=== PATIENT | female | born 1960 | race Caucasian/White ===

== ENCOUNTER 2017-05-16 08:52 | Day surgery (SDC) | payer OTHER ==
[~2017-05-16] VITALS: Ht 152.4 cm; Wt 106.1 kg
--- NOTE | ~2017-05-16 | HP ---
PATIENT: FERNANDEZ EMMANUEL MEDICAL RECORD: [id number] ACCOUNT: [id number] LOCATION:D.BRIAN : 62 ADMISSION DATE: 05/16/17 HISTORY AND PHYSICAL EXAMINATION History and Physical Addendum There is a history and physical on the chart. I have reviewed her past history. We now have cardiac clearance to proceed with surgery. The risks, possible complications, and alternatives to the procedure were explained to the patient. She elects to proceed. TRANSINT:[id number] Voice Confirmation ID: [id number] DOCUMENT ID: [id number] ALEJANDRA HARTMAN MD CC: [id number] DICTATION DATE: 05/16/17 1309 ELECTRIC RAZOR MECHANIC: 05/16/17 1402 [address] [place] [id number] [place] [id number]
--- NOTE | ~2017-05-16 | OP ---
PATIENT NAME: FERNANDEZ EMMANUEL MEDICAL RECORD: [id number] :62 LOCATION:D.[facility] ADMISSION DATE: SURGEON: ALEJANDRA HARTMAN MD DATE OF OPERATION: 05/16/2017 PREOPERATIVE DIAGNOSIS: History of T1N0M0 anal squamous cell carcinoma. POSTOPERATIVE DIAGNOSIS: History of T1N0M0 anal squamous cell carcinoma with no grossly-appearing recurrence, path pending. PROCEDURES: 1. Anal evaluation under anesthesia. 2. Incisional biopsies of the anus. 3. Anal brushings for cytology. SURGEON: Alejandra Hartman MD. JEWELRY ENGRAVER: None. BLOOD LOSS: Minimal. ANESTHESIA: General. COMPLICATIONS: None. The risks, possible complications and alternatives to the procedure were explained to the patient. She elects to proceed. OPERATIVE COURSE: The patient was conveyed to the operating room electively on 05/16/2017. General anesthesia was induced by the anesthesia staff. The patient was placed in the lithotomy position. The buttocks were taped laterally. The anus and perianal areas were sterilely prepped and draped. I then dilated the anus laterally to 2 fingers. U-shaped anal retractors were placed. Utilizing mediastinoscopy biopsy forceps, I performed 360-degree biopsies of the anal mucosa. This was after brushing the anus with a cytology brush. The brush was sent to pathology. The anal biopsies were sent to pathology. Utilizing the argon plasma shovel log loader operator with the right colon setting in the forced mode, hemostasis was achieved. There was one area that had to be closed with a single horizontal mattress 3-0 Vicryl suture. Gelfoam was applied within the anus and lower rectum. A combination of sterile preparation and Marcaine was used to infiltrate the perianal tissues. A topical anesthetic cream was applied to the external hemorrhoids. The patient was then extubated and conveyed to the post-anesthesia care unit where she was in stable condition. She will be dismissed home on Valium, Glendo as well as Colace. I will see her in the office in 2-3 weeks. TRANSINT:[id number] Voice Confirmation ID: [id number] DOCUMENT ID: [id number] OPERATIVE REPORT [id number] FERNANDEZ EMMANUEL ALEJANDRA HARTMAN MD CC: JOSHUA FERGUSON MD, BOUCHRA MERRITT TAUTH, JEFFREY MD and [facility], [id number] DICTATION DATE: 05/16/17 1428 TAILER IN: 05/16/172199 [facility] 05/16/17 [facility] [address] [place] [id number]
[~2017-05-16 08:52] MED LIST: ATIVAN0.5 MG PO; BAYER CHEWABLE81 MG PO; BENTYL 20 MG TA20 MG PO; CELEXA20 MG PO; CHERATUSSIN AC473 ML PO; COZAAR100 MG PO; HYDROCODON-ACE1 EAC9 PO; IMODIUM2 MG PO; NEXIUM40 MG PO; OMNICEF300 MG PO; PLAVIX75 MG PO; ZEBETA10 MG PO; ZIAC 10-6.25 MG1 TAB PO; ZOFRAN8 MG PO
[2017-05-16 09:38] LABS: BASOPHILS 0.1 % (0-2); EOSINOPHILS 1.7 % (0-7); HEMATOCRIT 36.3 % (36.0-48.0); HEMOGLOBIN 11.8 g/dL (12-16); IMMATURE GRANULOCYTES 0.9 % (0-5); LYMPHOCYTES 8.9 % (15-50); MCHC 32.5 g/dL (31.0-37.0); MCV 92.4 fL (80.0-100.0); MEAN PLATELET VOLUME 9.4 fL (7.4-10.4); MONOCYTES 11.5 % (2-11); NEUTROPHILS 76.9 % (40-80); RBC 3.93 10x6/uL (4.00-5.40); RDW 14.3 % (11.5-14.5); WBC 6.9 10x3/uL (4.8-10.8)
[2017-05-16 09:40] LABS: PLATELET COUNT 299 10x3/uL (130-400)
[2017-05-16 09:53] LABS: ANION GAP 17.6 mmol/L (8-16); CALCIUM 9.7 mg/dL (8.5-10.1); CARBON DIOXIDE 22.2 mmol/L (21.0-32.0); CREATININE - SERUM 1.6 mg/dL (0.6-1.3); POTASSIUM - SERUM 3.8 mmol/L (3.5-5.1)
[2017-05-16 09:57] LABS: APTT 28.6 SECONDS (22.8-39.4); PROTIME 13.1 SECONDS (11.6-15.0)
[2017-05-16 10:13] VITALS: BP 110/56; Ht 152.4 cm; Wt 106.1 kg
--- NOTE | 2017-05-16 14:55 | NUR ---
PATIENT C/O HEAVINESS IN CHEST AREA EKG ORDERED AND PERFORMED IN RR OK TO TRANSPORT TO OUTPATIENT PER DR ROMERO
--- NOTE | 2017-05-16 15:54 | NUR ---
1515 BACK FROM EXAM UNDER ANESTHESIA AND BIOPSIES. HAS MESH PANTIES ON AND DRESSING NO ACTIVE BLEEDING. RESP NONLABORED SAT 91 ON 2 L N/C. DENIES CHEST PAIN.
--- NOTE | 2017-05-16 16:18 | NUR ---
1545 UP AND VOIDED V/S STABLE. TOLERATED FULL LIQUIDS. PAD CHANGED SMALL AMT BLEEDING ON PAD.
--- NOTE | 2017-05-16 16:19 | NUR ---
1616 V/S STABLE. DISCHARGE INSTRUCTIONS GIVEN IV DCD CATHETER INTACT.
--- NOTE | 2017-05-16 16:33 | NUR ---
1630 DISCHARGED TO HOME VIA W/C WITH FAMILY.
== END 2017-05-16 16:30 | disposition home or self-care (01) ==
LOC: D.OPS 08:52 → D.PAN 11:00 → D.OPS 11:30 → D.PAN 13:30 → D.OPS 13:35 → D.PAN 13:35 → D.OPS 15:45
PROVIDERS: Anesthesiology
DX: Z85.048 Personal history of other malignant neoplasm of rectum, rectosigmoid junction, and anus (principal); Z01.812 Encounter for preprocedural laboratory examination

== ENCOUNTER 2018-04-22 07:52 | Outpatient (CLI) | payer BC ==
[~2018-04-22] VITALS: Ht 152.4 cm; Wt 109.1 kg
--- NOTE | ~2018-04-22 | HEMODYNAMI ---
PATIENT:FERNANDEZ EMMANUEL MEDICAL RECORD: [id number] : 62 LOCATION:D.CAT ADMISSION DATE: 04/22/18 Generatedon:04/22/201810:01 Patient name: FERNANDEZ EMMANUEL Patient #: [id number] SSN: D OB: 1960 Date of study: 04/22/2018 Page: Of Hemodynamic Procedure Report Patient Data Patient Demographics Procedure consent was obtained First Name: FERNANDEZ Gender: Female Last Name: CHOLO : 1960 Middle Initial: A Age: 57 year(s) Patient #: [id number] Race: Additional ID: [id number] Contact details [address]: [address] [place] [address] rd State: [place] City: [place] Zip code: [address] Past Medical History History of disease Date Diagnosis Comments Peripheral vascular disease Allergies Allergen Reaction Date Comments Reported Morphine 11/01/2015 Morphine 11/07/2016 Morphine 11/08/2016 Morphine 04/22/2018 Admission Admission Data Admission Date: 04/22/2018 Admission Time: 7:52 Height (in.): 5 BSA: 0.33 (m2) Height (cm.): 12.7 BMI: 6777.59 (kg/m2) Weight (lbs.): 241 Weight (kg.): 109.32 Lab Results Lab Result Date: 04/22/2018 Lab Result Time: 0:00 Biochemistry Name Units Result Min Max BUN mg/dl 38 --(----)-* 7 18 Creatinine mg/dl 1.4 --(----)*- 0.6 1.3 CBC Name Units Result Min Max Hemoglobin g/dl 12 *-(----)-- 13.5 17.5 Procedure Procedure Types Cath Procedure Diagnostic Procedure [facility] w/Coronaries FFR/IVUS Intra-Coronary IVUS Initial Sedation Charges Moderate Sedation up to 15 minutes PCI Procedure Coronary Stent Coronary Stent Initial Procedure Description Procedure Date Procedure Date: 04/22/2018 Procedure Start Time: 9:43 Procedure End Time: 10:00 Procedure Staff Name Function Chan Castro MD Performing Physician Brook Gamboa RT Monitor Jahaira Platt RT Scrub Jan Long RN Nurse Procedure Data Cath Procedure Fluoroscopy Diagnostic fluoroscopy Total fluoroscopy Time: 3.6 time: 3.6 min min Diagnostic fluoroscopy Total fluoroscopy dose: 727 dose: 727 mGy mGy Contrast Material Contrast Material Type Amount (ml) Isovue 300 80 Entry Location Entry Primary Successful Side Size Upsize Upsize Entry Closure Rivera ccessful Closure Location (Fr) 1 (Fr) 2 (Fr) Remarks Device Remarks Radial Right 6 Fr Mechanical artery Short Compression Estimated blood loss: 10 ml Diagnostic catheters Device Type Used For End Catheter Placement DIAGNOSTIC [place] 110cm 5 Procedure Fr catheter ([id number]) Procedure Complications No complications Procedure Medications Medication Administration Route Dosage 0.9% NaCl I.V. 100 ml/hr Oxygen etCO2 Nasal cannula 2 l/min Heparin Flush Bag added to field 2 bags (1000units/500ml NS) Lidocaine 2% added to field 20 Radial Cocktail added to field 1 syringe (Verapomil 2mg/Nitro 400mcg/Heparin 1500units) Pepcid I.V. 20 mg Versed I.V. 1 mg Fentanyl I.V. 50 mcg Versed I.V. 1 mg Fentanyl I.V. 50 mcg Radial Cocktail I.A. 1 syringe (Verapomil 2mg/Nitro 400mcg/Heparin 1500units) Heparin Bolus I.V. 4000 units Hemodynamics Rest BSA: 0.33 (m2) O2 Consumption: Estimated: 44.88 (ml/min) O2 Consumption indexed: Estimated:136 (ml/min/m) Pre Cath Intra NCS Post Cath Vital Signs Time Heart Resp SPO2 etCO2 NIBP (mmHg) Rhythm Pain Sedation Rate (ipm) (%) (mmHg) Status Level (bpm) 9:17:30 62 20 98 0 157/78(120) NSR 0 (11) 10(A) , No pain 9:22:25 59 17 100 41 128/68(104) NSR 0 (11) 10(A) , No pain 9:28:11 58 15 98 41.7 102/39(84) NSR 0 (11) 10(A) , No pain 9:32:52 57 23 96 43.2 107/56(76) NSR 0 (11) 10(A) , No pain 9:37:32 57 14 97 41.7 96/49(81) NSR 0 (11) 10(A) , No pain 9:42:49 64 16 100 44 141/69(102) NSR 0 (11) 9(A) , No pain 9:47:40 66 14 93 46.9 120/58(83) NSR 0 (11) 9(A) , No pain 9:52:23 65 15 94 46.9 110/59(82) NSR 0 (11) 10(A) , No pain 9:57:22 64 14 99 46.2 Measuring NSR 0 (11) 10(A) , No pain 9:57:51 64 27 97 46.2 124/60(78) NSR 0 (11) 10(A) , No pain Medications Time Medication Route Dose Verified Delivered Reason Note s Effectiveness by by 9:27:30 0.9% NaCl I.V. 100 Jan Jan Per physician ml/hr Mercedes Long RN RN 9:27:40 Oxygen etCO2 2 l/min Jan Jan Per physician Nasal Mercedes Long cannula MICHELLE RN 9:27:57 Heparin Flush added 2 bags Jan Jan used for Bag to Mercedes Long procedure (1000units/500ml field MARTINEZ RN NS) 9:28:07 Lidocaine 2% added 20ml Jan Jan for local to vial Lorsujatha Long anesthetic field MARTINEZ RN 9:28:23 Radial Cocktail added 1 Jan Jan used for (Verapomil to syringe Vickieigan Mercedes procedure 2mg/Nitro field MARTINEZ RN 400mcg/Heparin 1500units) 9:28:39 Pepcid I.V. 20 mg Jan Jan Per physician Mercedes Long RN RN 9:39:28 Versed I.V. 1 mg Jan Jan for sedation Mercedes Long RN RN 9:39:37 Fentanyl I.V. 50 mcg Jan Jan for sedation Mercedes Long RN RN 9:41:45 Versed I.V. 1 mg Jan Jan for sedation Mercedes Long RN RN 9:41:52 Fentanyl I.V. 50 mcg Jan Jan for sedation Mercedes Long RN RN 9:44:10 Radial Cocktail I.A. 1 Jan Chan for (Verapomil syringe Lorigan Tauth MD vasodilation 2mg/Nitro RN 400mcg/Heparin 1500units) 9:49:28 Heparin Bolus I.V. 4000 Jan Montoya for units Mercedes Long anticoagulation RN manual control auger press operator Log Time Note 8:55:12 Time tracking: Regular hours (M-F 7:00 - 5:00) 8:55:15 Plan of Care:Hemodynamics will remain stable., Cardiac rhythm will remain stable., Comfort level will be maintained., Respiratory function will remain adequate., Patient/ family verbilizes understanding of procedure., Procedure tolerated without complication., Recovers from procedure without complications.. 8:55:17 Signed procedure consent form obtained from patient. 8:57:57 Patient allergic to Morphine 8:58:29 Lab Result : BUN 38 mg/dl 8:58:29 Lab Result : Creatinine 1.4 mg/dl 8:58:29 Lab Result : Hemoglobin 12 g/dl 8:58:46 Patient Height : 5 inches 8:58:50 Patient Weight : 241 lbs 9:00:06 H&P Date Dictated: 04/01/2018 Within 30 days and on chart., H&P Addendum completed by physician on day of procedure. (MUST COMPLETE FOR ALL OUTPATIENTS). 9:03:00 Brook Gamboa RT(R) sent for patient. Start room use. 9:09:37 Patient received from Pre/Post Procedure Room to CCL 1 Alert and oriented. Tansferred to table in Supine position. 9:09:39 Warm blankets applied, and nisha hugger turned on for patient comfort. 9:09:39 Correct patient and procedure confirmed by team. 9:09:40 ECG and BP/O2 sat monitors applied to patient. 9:16:29 Vital chart was started 9:19:26 Rhythm: sinus rhythm 9:19:27 Full Disclosure recording started 9:19:28 Pre-procedure instructions explained to patient. 9:19:29 Pre-op teaching completed and patient verbalized understanding. 9:19:30 Family in patients room. 9:19:31 Patient NPO since Midnight. 9:19:33 Is the patient allergic to Iodine/contrast media? No. 9:23:44 Is patient on blood thinner?Yes 9:24:24 pre loaded plavix 9:24:29 Patient diabetic? No. 9:25:04 Patient not . Patient has had hysterectomy. 9:25:06 Previous problem with sedation/anesthesia? No ? 9:25:08 Snore? Yes 9:25:09 Sleep apnea? Yes 9:25:10 Deviated septum? No 9:25:11 Opens mouth fully? Yes 9:25:12 Sticks out tongue? Yes 9:25:14 Airway obstruction? No ? 9:25:18 Dentures? Yes OUT 9:25:21 Modified Billy's test Ulnar < 7 seconds 9:25:23 Patient pain scale 0/10 ?. 9:25:27 IV patent on arrival in left forearm with 0.9% NaCl at [facility]. 9:25:31 Lab results completed and on chart. 9:25:35 Right Radial & Right Groin area was prepped with chlora-prep and draped in sterile fashion 9:25:36 Alarms reviewed by R. N. 9:25:37 Sharps counted by scrub and verified by R.N. 9:25:41 Use device set Radial Dx or PCI 9:25:47 ACIST Syringe (13293) opened to sterile field. 9:25:50 Bag Decanter (2002S) opened to sterile field. 9:25:51 ACIST Manifold (41487) opened to sterile field. 9:25:52 ACIST Hand Control (62620) opened to sterile field. 9:25:53 Tegaderm 4 x 4 (1626W) opened to sterile field. 9:25:57 Medline Cath Pack ([id number]) opened to sterile field. 9:25:58 DIAGNOSTIC WIRE .035 260cm J wire (555913) opened to sterile field. 9:25:58 MBrace Wrist Support ([id number]) opened to sterile field. 9:26:01 SHEATH 6Fr Prelude Radial ([id number]) opened to sterile field. 9:27:30 0.9% NaCl 100 ml/hr I.V. was administered by Jan Long RN; Per physician; 9:27:40 Oxygen 2 l/min etCO2 Nasal cannula was administered by Jan Long RN; Per physician; 9:27:57 Heparin Flush Bag (1000units/500ml NS) 2 bags added to field was administered by Jan Long RN; used for procedure; 9:28:07 Lidocaine 2% 20ml vial added to field was administered by Jan Long RN; for local anesthetic; 9:28:23 Radial Cocktail (Verapomil 2mg/Nitro 400mcg/Heparin 1500units) 1 syringe added to field was administered by Jan Long RN; used for procedure; 9:28:39 Pepcid 20 mg I.V. was administered by Jan Long RN; Per physician; 9:38:29 --------ALL STOP TIME OUT------ 9:38:30 Final Timeout: patient, procedure, and site verified with staff and physician. All members of the team are in agreement. 9:38:32 Right Radial & Right Groin site verified by team. 9:38:34 Physical assessment completed. ASA score P 2 - A patient with mild systemic disease as per Chan Castro MD. 9:38:37 Sedation plan: IV Moderate Sedation Medication:Versed, Fentanyl 9:38:40 Zero performed for pressure channel P1 9:39:28 Versed 1 mg I.V. was administered by Jan Long RN; for sedation; :39:37 Fentanyl 50 mcg I.V. was administered by Jan Long RN; for sedation; 9:41:45 Versed 1 mg I.V. was administered by Jan Long RN; for sedation; 9:41:52 Fentanyl 50 mcg I.V. was administered by Jan Long RN; for sedation; 9:42:03 Procedure started. 9:43:23 Local anesthetic to right radial artery with Lidocaine 2% by Chan Castro MD.INITIAL ACCESS ONLY 9:43:37 A 6 Fr Short sheath was inserted into the Right Radial artery 9:44:10 Radial Cocktail (Verapomil 2mg/Nitro 400mcg/Heparin 1500units) 1 syringe I.A. was administered by Chan Castro MD; for vasodilation; 9:44:57 A DIAGNOSTIC [place] 110cm 5 Fr catheter (898368) was advanced over the wire and used for Procedure. 9:45:20 Injector settings: Ml/sec: 7, Volume: 15, 9:45:22 LV gram done using KAUFFMAN 9:45:49 EF : 60 % 9:46:08 RCA angiography performed. 9:47:28 Catheter exchanged over wire. 9:47:35 INFLATOR Merit BasixCompak (KD8209) opened to sterile field. 9:47:38 CHOICE PT Extra Support 182cm wire ([id number]) opened to sterile field. 9:47:44 GUIDE 6FR XBLAD 3.5 catheter ([id number]) opened to sterile field. 9:48:04 6 Fr XBLAD 3.5 guide catheter was inserted over the wire 9:49:12 LCA angiography performed. 9:49:28 Heparin Bolus 4000 units I.V. was administered by Jan Long RN; for anticoagulation; 9:49:59 Indio Inupiat Eagleye IVUS Catheter (49251X) opened to sterile field. 9:50:27 CHOICE ES 182 wire advanced. 9:52:04 IVUS catheter advanced over wire. 9:52:06 IVUS pass to LAD lesion performed. 9:52:15 IVUS catheter removed over wire. 9:54:02 Place stent Inflation Number: 1 A INTEGRITY RX 3.0 x 15 stent ([id number]) was prepped and advanced across the Mid LAD. The stent was deployed at 13 FREDERICK for 0:10 (min:sec). 9:54:21 Stent catheter was removed intact over wire. 9:54:22 Wire removed. 9:54:23 Guide catheter removed. 9:54:33 Procedure ended.(Physican Out) 9:54:53 Sheath removed intact; hemostasis achieved with Mechanical Compression to the Right Radial artery. 9:55:01 Fluoroscopy time 03.60 minutes. 9:55:10 Fluoroscopy dose: 727 mGy 9:55:10 Flurop Dose total: 727 9:55:15 Contrast amount:Isovue 300 80ml. 9:55:16 Sharps counted by scrub and verified by R.N. 9:55:25 TR BAND Standard ([id number]) opened to sterile field. 9:57:36 TR band inflated with 11cc of air. 9:57:41 Post-procedure physical assessment completed. ASA score P 2 - A patient with mild systemic disease as per Chan Castro MD. 9:57:48 Post procedure rhythm: sinus rhythm 9:57:51 Estimated blood loss: 10 ml 9:57:53 Post procedure instruction explained to patient.Patient verbalizes understanding. 9:57:53 Patient needs reinforcement of post procedure teaching. 9:58:51 Procedure type changed to Cath procedure, Diagnostic procedure, LHC, LHC w/Coronaries, FFR/IVUS, Intra-Coronary IVUS Initial, Sedation Charges, Moderate Sedation up to 15 minutes, PCI procedure, Coronary Stent, Coronary Stent Initial 10:00:14 Procedure and supply charges have been captured, reviewed, submitted and are correct. 10:00:19 Procedure Complication : No complications 10:00:21 Vital chart was stopped 10:00:22 See physician's report for complete and final results. 10:00:24 Report given to Pre/Post Procedure Room. 10:00:27 Patient transfered to Pre/Post Procedure Room with Bed. 10:00:32 Procedure ended. 10:00:32 Full Disclosure recording stopped 10:00:35 End room use (Document Last) Intervention Summary Intervention Notes Time ActionType Lesion and Equipment Action# Pressure Duration Attributes Used 9:54:02 Place stent Mid LAD INTEGRITY RX 1 13 00:10 3.0 x 15 stent ([id number]) Device Usage Item Name Manufacture Quantity Catalog Number Hospital Part Current M inimal Lot# / Charge Number Stock Stock Serial# Code ACIST Syringe Acist 1 99724 313573 262118 667388 2 0 (79221) Medical Systems Inc Bag Decanter Microtek 1 2002S 852393 53073 914311 5 (2002S) Medical Inc. ACIST Manifold Acist 1 41200 320320 519060 607161 5 (82076) Medical Systems Inc ACIST Hand Acist 1 40026 610927 714987 463192 5 Control (38587) Medical Systems Inc Tegaderm 4 x 4 3M 1 1626W 408503 632419 275238 5 (1626W) Medline Cath Cardinal 1 [id number] 989409 39902 271171 5 [facility] ([id number]) DIAGNOSTIC WIRE St Roney 1 538570 841104 783330 222391 3 0 .035 260cm J wire (155989) MBrace Wrist Advanced 1 140-0250-00 604544 92861 001496 5 Support Vascular (961400097) Dynamics SHEATH 6Fr Merit 1 [id number] 963758 128168 999389 5 Prelude Radial Medical ([id number]) DIAGNOSTIC Terumo 1 40-2301 824101 344534 727651 5 [place] 110cm 5 Fr catheter (481726) INFLATOR Merit Merit 1 [id number] 695407 668221 309759 1 5 [facility] (AQ5325) CHOICE PT Extra Heyburn 1 [id number] 230979 765787 752402 5 Support 182cm Scientific wire ([id number]) GUIDE 6FR XBLAD Cardinal 1 [id number] 416859 962023 726986 1 0 3.5 catheter Health (03040861) Indio Indio 1 [id number] 310944 101467 801550 8 Inupiat Eagleye IVUS Catheter (37503F) INTEGRITY RX Medtronic 1 [id number] 109547 778396 223873 5 3.0 x 15 stent ([id number]) TR BAND Terumo 1 [id number] 419881 997323 892862 4 0 Standard ([id number]) Signature Audit [place] Stage Time Signature Unsigned Intra-Procedure 04/22/2018 Brook Gamboa 10:01:07 AM RT(R) Signatures Monitor : Brook Gamboa Signature : RT Date : Time : [id number] [place] [address]
--- NOTE | ~2018-04-22 | OP ---
PATIENT NAME: FERNANDEZ EMMANUEL MEDICAL RECORD: [id number] :62 LOCATION:D.CAT ADMISSION DATE: SURGEON: JULES ARREGUIN MD DATE OF OPERATION: 04/22/2018 PROCEDURES: 1. PTCA stent LAD. 2. Intravascular ultrasound. 3. Left heart catheterization. 4. Selective coronary angiography. 5. Left ventriculogram. INDICATION: Angina, coronary artery disease, abnormal nuclear stress test, anterior ischemia. PROCEDURE IN DETAIL: After informed consent was obtained and after detailed explanation of risks, benefits as well as alternative therapies, the patient elected to proceed with angiogram and angioplasty. The right radial area was prepped and draped in normal sterile fashion. Right radial artery was cannulated via modified Seldinger technique with placement of 6-Croatian sheath. All catheters exchanged through this sheath. FINDINGS: The left ventriculogram was performed in a standard 30-degree KAUFFMAN view, reveals good cardiac wall motion throughout all segments. Overall ejection fraction estimated 60%. SELECTIVE CORONARY ANGIOGRAPHY: 1. Left main is with no significant angiographic disease. 2. Left anterior descending has previously placed stent that is widely patent. After the previously placed stent, there is a shrinkage of the whole vessel and 60% stenosis at that point. However, when looking at the outer diameter of the vessel before and after this area, this is more than 60% stenosis due to the shrinkage of the whole vessel at this point. 3. Left circumflex has moderate irregularities, but no flow-limiting stenosis. 4. The right coronary has previously placed stents, these are widely patent with no significant restenosis throughout. PTCA STENT OF THE LAD: The stent used was a 3.0 x 15 mm Integrity. Result was 0% residual stenosis. OVERALL IMPRESSION: Successful percutaneous transluminal coronary angioplasty stent of the left anterior descending going from greater than 70% initial stenosis in the mid vessel correlating with the perfusion defect on nuclear stress testing to 0% residual stenosis. TRANSINT:[id number] Voice Confirmation ID: [id number] DOCUMENT ID: [id number] OPERATIVE REPORT [id number] CHOLOFERNANDEZ Fam JULES ARREGUIN MD at 1711 CC: [id number] DICTATION DATE: 04/22/18 0959 SOLUTION LEAD: 04/22/18 1205 DEP CLI 04/22/18 [facility] [address] [place] [address]
[2018-04-22] MEDS ORDERED: CRESTOR5 MG PO (08:33)
[2018-04-22 08:38] LABS: BASOPHILS 0.2 % (0-2); EOSINOPHILS 2.3 % (0-7); HEMATOCRIT 36.2 % (36.0-48.0); IMMATURE GRANULOCYTES 0.8 % (0-5); MCH 30.1 pg (26.0-34.0); MCHC 33.1 g/dL (31.0-37.0); MCV 90.7 fL (80.0-100.0); NEUTROPHILS 78.7 % (40-80); PLATELET COUNT 260 10x3/uL (130-400); RBC 3.99 10x6/uL (4.00-5.40); RDW 13.9 % (11.5-14.5); WBC 6.6 10x3/uL (4.8-10.8)
[2018-04-22 08:41] VITALS: BP 126/47; Ht 152.4 cm; Wt 109.1 kg
[2018-04-22 08:48] LABS: CALCIUM 9.2 mg/dL (8.5-10.1); CARBON DIOXIDE 22.2 mmol/L (21.0-32.0); CREATININE - SERUM 1.4 mg/dL (0.6-1.3); POTASSIUM - SERUM 4.2 mmol/L (3.5-5.1)
== END 2018-04-22 14:00 | disposition home or self-care (01) ==
LOC: D.CATH 07:52
PROVIDERS: Internal Medicine Interventional Cardiology
DX: I25.119 Atherosclerotic heart disease of native coronary artery with unspecified angina pectoris (principal); Z01.812 Encounter for preprocedural laboratory examination

== ENCOUNTER 2018-05-22 09:15 | Outpatient (CLI) | payer BC ==
[~2018-05-22] VITALS: Ht 152.4 cm; Wt 110.0 kg
--- NOTE | ~2018-05-22 | HEMODYNAMI ---
PATIENT:FERNANDEZ EMMANUEL MEDICAL RECORD: [id number] : 62 LOCATION:DLeonaCAT ADMISSION DATE: 05/22/18 Generatedon:05/22/201815:06 Patient name: FERNANDEZ EMMANUEL Patient #: [id number] SSN: D OB: 1960 Date of study: 05/22/2018 Page: Of Hemodynamic Procedure Report Patient Data Patient Demographics Procedure consent was obtained First Name: FERNANDEZ Gender: Female Last Name: CHOLO : 1960 [facility] Initial: A Age: 57 year(s) Patient #: [id number] Race: Additional ID: [id number] Contact details [address]: [address] [place] [address] rd State: [place] City: [place] Zip code: [address] Past Medical History History of disease Date Diagnosis Comments Peripheral vascular disease Allergies Allergen Reaction Date Comments Reported Morphine 11/01/2015 Morphine 11/07/2016 Morphine 11/08/2016 Morphine 04/22/2018 Other allergy 05/22/2018 Morphine Admission Admission Data Admission Date: 05/22/2018 Admission Time: 9:15 Admit Source: Other Lab Results Lab Result Date: 05/22/2018 Lab Result Time: 10:40 Biochemistry Name Units Result Min Max BUN mg/dl 25 --(----)-* 7 18 Creatinine mg/dl 1.3 --(---*)-- 0.6 1.3 CBC Name Units Result Min Max Hematocrit % 35.3 *-(----)-- 42 54 Hemoglobin g/dl 11.5 *-(----)-- 13.5 17.5 Procedure Procedure Types Cath Procedure Peripheral Cath Diagnostic Procedure Cath Peripheral Nctmb-Vwqbzte-Zuh-Off Peripheral vascular Intervention Stent Stent Iliac w/plasty Initial Procedure Description Procedure Date Procedure Date: 05/22/2018 Procedure Start Time: 14:42 Procedure End Time: 15:05 Procedure Staff Name Function Chan Castro MD Performing Physician Fahad Webb RN Nurse Brook Gamboa RT Scrub Magdaleno Calderón RT Monitor Procedure Data Cath Procedure Fluoroscopy Diagnostic fluoroscopy Total fluoroscopy Time: 2.3 time: 2.3 min min Diagnostic fluoroscopy Total fluoroscopy dose: 352 dose: 352 mGy mGy Contrast Material Contrast Material Type Amount (ml) Isovue 370 70 Entry Location Entry Primary Successful Side Size Upsize 1 Upsize Entry Closure Rivera ccessful Closure Location (Fr) (Fr) 2 (Fr) Remarks Device Remarks Femoral Right 5 Fr Exoseal artery Femoral Left 6 Fr 6 Fr 6 Fr Exoseal artery Short Mid-Length Short Estimated blood loss: 10 ml Diagnostic catheters Device Type Used For End Catheter Placement DIAGNOSTIC UF 5Fr Procedure catheter ([id number]) Procedure Complications No complications Procedure Medications Medication Administration Route Dosage Oxygen NC 2 l/min Lidocaine 2% added to field 20 Heparin Flush Bag added to field 2 bags (1000units/500ml NS) 0.9% NaCl I.V. 100 ml/hr Versed I.V. 1 mg Fentanyl I.V. 50 mcg Versed I.V. 1 mg Versed I.V. 1 mg Fentanyl I.V. 50 mcg Heparin Bolus I.V. 4000 units Versed I.V. 1 mg Hemodynamics Rest HGB: 11.5 (g/dl) Heart Rate: 58 (bpm) Snapshots Pre Cath Intra NCS Post Cath Vital Signs Time Heart Resp SPO2 etCO2 NIBP (mmHg) Rhythm Pain Sedation Rate (ipm) (%) (mmHg) Status Level (bpm) 14:25:23 56 15 100 33.6 173/99(154) NSR 0 (11) 10(A) , No pain 14:29:41 60 14 98 42.6 121/81(102) NSR 0 (11) 10(A) , No pain 14:33:43 59 15 98 41.1 128/79(113) NSR 0 (11) 10(A) , No pain 14:37:46 57 13 98 41.1 122/81(116) NSR 0 (11) 10(A) , No pain 14:41:48 61 14 97 35.8 126/79(96) NSR 0 (11) 10(A) , No pain 14:45:54 57 14 97 41.9 120/71(101) NSR 0 (11) 9(A) , No pain 14:49:55 64 15 97 43.3 131/79(95) NSR 0 (11) 9(A) , No pain 14:54:01 61 14 98 43.3 129/72(91) NSR 0 (11) 10(A) , No pain 14:58:03 64 16 98 41.9 140/82(114) NSR 0 (11) 10(A) , No pain 15:02:11 60 14 98 42.6 139/74(115) NSR 0 (11) 10(A) , No pain Medications Time Medication Route Dose Verified Delivered Reason Notes Effectiveness by by 14:23:50 Oxygen NC 2 Chan Buffie used for l/min Gloria Webb RN procedure 14:23:57 Lidocaine 2% added 20ml Chan Buffie used for to vial Gloria Webb RN procedure field 14:24:04 Heparin Flush added 2 Chan Buffie used for Bag to bags Gloria Webb RN procedure (1000units/500ml field NS) 14:24:12 0.9% NaCl I.V. 100 Chan Buffie Per physician ml/hr Gloria Webb RN 14:40:18 Versed I.V. 1 mg Chan Buffie for sedation Gloria Webb RN 14:40:24 Fentanyl I.V. 50 Chan Buffie for sedation mcg Gloria Webb RN 14:44:01 Fentanyl I.V. 50 Chan Buffie for sedation mcg Gloria Webb RN 14:44:55 Versed I.V. 1 mg Chan Buffie for sedation Gloria Webb RN 14:46:56 Versed I.V. 1 mg Chan Buffie for sedation Gloria Webb RN 14:50:14 Heparin Bolus I.V. 4000 Chan Buffie for verifi ed units Gloria Webb RN anticoagulation with dr castro 14:52:34 Versed I.V. 1 mg Chan Buffie for sedation Gloria Webb RN Procedure Log Time Note 13:54:56 Informed consent obtained and on chart 13:54:58 Admit Source: Other 13:55:09 Diagnostic Cath status Elective 13:55:10 Time tracking: Regular hours (M-F 7:00 - 5:00) 13:55:13 Plan of Care:Hemodynamics will remain stable., Cardiac rhythm will remain stable., Comfort level will be maintained., Respiratory function will remain adequate., Patient/ family verbilizes understanding of procedure., Procedure tolerated without complication., Recovers from procedure without complications.. 14:05:06 Fahad Webb RN sent for patient. Start room use. 14:12:41 Patient received from Pre/Post Procedure Room to CCL 2 Alert and oriented. Tansferred to table in Supine position. 14:12:42 Warm blankets applied, and nisha hugger turned on for patient comfort. 14:12:43 Correct patient and procedure confirmed by team. 14:12:43 ECG and BP/O2 sat monitors applied to patient. 14:12:45 Pre-procedure instructions explained to patient. 14:12:45 Pre-op teaching completed and patient verbalized understanding. 14:12:56 H&P Date Dictated: 05/19/2018 Within 30 days and on chart., H&P Addendum completed by physician on day of procedure. (MUST COMPLETE FOR ALL OUTPATIENTS). 14:12:58 Family in waiting room. 14:23:50 Oxygen 2 l/min NC was administered by Fahad Webb RN; used for procedure; 14:23:57 Lidocaine 2% 20ml vial added to field was administered by Fahad Webb RN; used for procedure; 14:24:04 Heparin Flush Bag (1000units/500ml NS) 2 bags added to field was administered by Fahad Webb RN; used for procedure; 14:24:12 0.9% NaCl 100 ml/hr I.V. was administered by Fahad Webb RN; Per physician; 14:24:18 Vital chart was started 14:26:06 Baseline sample Acquired. 14:26:10 Rhythm: sinus rhythm 14:26:12 Full Disclosure recording started 14:26:14 Patient NPO since Midnight. 14:26:34 Patient allergic to Other allergyMorphine 14:26:36 Is the patient allergic to Iodine/contrast media? No. 14:26:37 Is patient on blood thinner?Yes 14:26:38 ACC The patient was administered the following blood thiners within the last 24 hours: ACCPlavix 14:26:40 Patient diabetic? No. 14:26:42 Previous problem with sedation/anesthesia? No ? 14:26:43 Snore? Yes 14:26:44 Sleep apnea? No 14::44 Deviated septum? No 14:26:45 Opens mouth fully? Yes 14:26:46 Sticks out tongue? Yes 14:26:47 Airway obstruction? No ? 14:26:48 Dentures? No ? 14:26:53 Pre procedure: left posterior tibial pulse 2+ Normal; easily identifiable; not easily obliterated 14::56 Pre procedure: right posterior tibial pulse 1+ Palpable, but thready & weak; easily obliterated 14:27:03 IV patent on arrival in left forearm with 0.9% NaCl at [facility]. 14::57 Lab Result : BUN 25 mg/dl 14:: Lab Result : Creatinine 1.3 mg/dl 14:: Lab Result : Hemoglobin 11.5 g/dl 14:: Lab Result : Hematocrit 35.3 % 14:28:09 Lab results completed and on chart. 14:28:34 Bilateral groins area was prepped with chlora-prep and draped in sterile fashion 14:28:41 Alarms reviewed by R. N. 14:28:42 Sharps counted by scrub and verified by R.N. 14:28:48 ACIST Syringe (76861) opened to sterile field. 14:28:49 Bag Decanter (2002S) opened to sterile field. 14:28:50 ACIST Hand Control (69196) opened to sterile field. 14:28:51 ACIST Manifold (93878) opened to sterile field. 14:28:53 Tegaderm 4 x 4 (1626W) opened to sterile field. 14:28:57 Medline Cath Pack ([id number]) opened to sterile field. 14:29:06 SHEATH Prelude 5Fr 0.035 (YGZ-2O-47-035) opened to sterile field. 14:33:05 Zero performed for pressure channel P1 14:39:46 Physician arrived 14:39:47 --------ALL STOP TIME OUT------ 14:39:47 Final Timeout: patient, procedure, and site verified with staff and physician. All members of the team are in agreement. 14:39:49 Bilateral groins site verified by team. 14:39:52 Physical assessment completed. ASA score P 2 - A patient with mild systemic disease as per Chan Csatro MD. 14:39:56 Sedation plan: IV Moderate Sedation Medication:Versed, Fentanyl 14:40:18 Versed 1 mg I.V. was administered by Fahad Webb RN; for sedation; 14:40:24 Fentanyl 50 mcg I.V. was administered by Fahad Webb RN; for sedation; 14:42:08 Procedure started. 14:42:14 Local anesthetic to right femoral artery with Lidocaine 2% by Chan Castro MD.INITIAL ACCESS ONLY 14:42:22 A 5 Fr sheath was inserted into the Right Femoral artery 14:43:54 A DIAGNOSTIC UF 5Fr catheter ([id number]) was advanced over the wire and used for Procedure. 14:44:01 Fentanyl 50 mcg I.V. was administered by Fahad Webb RN; for sedation; 14:44:24 Abdominal angiogram w/ runoff was performed. 14:44:25 Left leg runoff performed. 14:44:42 Right leg runoff performed. 14:44:55 Versed 1 mg I.V. was administered by Fahad Webb RN; for sedation; 14:45:00 Catheter removed. 14:46:01 SHEATH 6FR Brite Tip 35cm ([id number]) opened to sterile field. 14:46:45 SHEATH Prelude 6Fr 0.035 (EHW-8G-45-035) opened to sterile field. 14:46:55 Local anesthetic to left femerol artery with Lidocaine 2% by Chan Castro MD.ADDITIONAL ACCESS 14:46:56 Versed 1 mg I.V. was administered by Fahad Webb RN; for sedation; 14:47:48 A 6 Fr Short sheath was inserted into the Left Femoral artery 14:48:35 Sheath upsized to a 6 Fr Mid-Length. 14:50:14 Heparin Bolus 4000 units I.V. was administered by Fahad Webb RN; for anticoagulation; verified with dr castro 14:52:34 Versed 1 mg I.V. was administered by Fahad Webb RN; for sedation; 14:53:21 Place stent Inflation Number: 1 A ALEX 7 x 29 x 135 stent ([id number]) was prepped and advanced across the Proximal Common Iliac, Right. The stent was deployed at 11 FREDERICK for 0:10 (min:sec). 14:53:29 Stent catheter was removed intact over wire. 14:53:37 Sheath upsized to a 6 Fr Short. 14:53:43 EXOSEAL 6Fr (EX600) opened to sterile field. 14:53:44 EXOSEAL 5Fr (EX500) opened to sterile field. 14:53:51 Sheath removed intact; hemostasis achieved with Exoseal to the Left Femoral artery. 14:53:58 Sheath removed intact; hemostasis achieved with Exoseal to the Right Femoral artery. 14:53:59 Procedure ended.(Physican Out) 15:02:30 Fluoroscopy time 02.30 minutes. 15:02:34 Fluoroscopy dose: 352 mGy 15:02:34 Flurop Dose total: 352 15:02:53 Contrast amount:Isovue 370 70ml. 15:02:54 Sharps counted by scrub and verified by R.N. 15:02:54 Insertion/operative site no bleeding no hematoma. 15:02:57 Post-op/insertion site Right Femoral artery dressed using a 4 x 4 and Tegaderm. 15:02:59 Post-op/insertion site Left Femoral artery dressed using a 4 x 4 and Tegaderm. 15:03:03 Post right femoral artery:stable, soft, clean and dry 15:03:08 Post left femerol artery:stable, soft, clean and dry 15:03:09 Post Procedure Pulses reassessed and unchanged 15:03:11 Post procedure rhythm: unchanged. 15:03:13 Estimated blood loss: 10 ml 15:03:14 Post procedure instruction explained to patient.Patient verbalizes understanding. 15:03:15 Patient needs reinforcement of post procedure teaching. 15:03:44 Procedure type changed to Cath procedure, Peripheral Cath Diagnostic Procedure, Cath Peripheral, Rdjvt-Vzunicu-Gbo-Off, Peripheral vascular Intervention, Stent, Stent Iliac w/plasty Initial 15:04:45 INFLATOR Merit Rooseveltk (KK4877) opened to sterile field. 15:05:12 Procedure and supply charges have been captured, reviewed, submitted and are correct. 15:05:14 Procedure Complication : No complications 15:05:16 Vital chart was stopped 15:05:16 See physician's report for complete and final results. 15:05:18 Report given to Pre/Post Procedure Room. 15:05:20 Patient transfered to Pre/Post Procedure Room with Stretcher. 15:05:22 Procedure ended. 15:05:22 Full Disclosure recording stopped 15:05:28 End room use (Document Last) Intervention Summary Intervention Notes Time ActionType Lesion and Equipment Action# Pressure Duration Attributes Used 14:53:21 Place stent Proximal ALEX 7 x 1 11 00:10 Common 29 x 135 Iliac, stent Right ([id number]) Device Usage Item Name Manufacture Quantity Catalog Number Hospital Part Current Minimal Lot# / Charge Number Stock Stock Serial# Code ACIST Syringe Acist 1 99969 216870 238787 [id number] 20 (69559) [employer] Bag Decanter Microtek 1 2001S 080966 77184 059762 5 (2001S) Medical Inc. ACIST Hand Acist 1 77353 793924 906072 245462 5 Control (45564) [employer] ACIST Manifold Acist 1 38284 502735 712470 269853 5 (67633) [employer] Inc Tegaderm 4 x 4 3M 1 1626W 039563 629953 977644 5 (1626W) SHEATH Prelude Merit 1 OTB-8E-66-035 974955 989979 368914 5 5Fr 0.035 Medical (UGF-3N-37-035) Medline Cath Cardinal 1 [id number] 697160 66901 384779 5 Pack Health ([id number]) DIAGNOSTIC UF Cardinal 1 [id number] 539791 829590 719264 10 5Fr catheter Health ([id number]) SHEATH 6FR Cardinal 1 [id number] 541151 700003 335700 1 Brite Tip 35cm Health (858305B) SHEATH Prelude Merit 1 VFC-3O-87-35 489165 5147537 070473 5 6Fr 0.035 Medical (XFP-5E-72-035) ALEX 7 x 29 Cardinal 1 [id number] 188316 779422 5 x 135 stent Health ([id number]) EXOSEAL 6Fr Cardinal 1 EX600 622352 089175 797312 10 (EX600) Health EXOSEAL 5Fr Cardinal 1 EX500 729714 746967 162120 10 (EX500) Health INFLATOR Merit Merit 1 RG3981 601227 914392 040103 15 Second Sight ([id number]) Signature Audit [place] Stage Time Signature Unsigned Intra-Procedure 05/22/2018 Magdaleno Calderón 3:06:14 PM RT(R) Signatures Monitor : Magdaleno Calderón RT Signature : Date : Time : [address] [place] [address]
--- NOTE | ~2018-05-22 | OP ---
PATIENT NAME: FERNANDEZ EMMANUEL MEDICAL RECORD: [id number] :62 LOCATION:D.CAT ADMISSION DATE: SURGEON: JULES ARREGUIN MD DATE OF OPERATION: 05/22/2018 PROCEDURES: 1. Stent placement, iliac, left. 2. QUALITY ASSURANCE CONSULTANT iliac, left. 3. Aortofemoral runoff. 4. Abdominal aortography. INDICATION: Claudication, peripheral vascular disease. PROCEDURE IN DETAIL: After informed consent was obtained and after a detailed description of risks, benefits as well as alternative therapies, the patient was elected to proceed with angiogram and angioplasty. The left femoral area was prepped and draped in normal sterile fashion. Left femoral artery was cannulated via modified Seldinger technique with placement of 6-Italian sheath. All catheters exchanged through this sheath. FINDINGS: Abdominal angiography was performed. The catheter was pulled down for aortofemoral runoff. Abdominal aortography reveals previously placed stent in the abdominal aorta that is widely patent with no significant restenosis. No disease elsewise in the abdominal aorta. RIGHT LEG: A. Iliac: The common internal and external iliacs have moderate irregularities, but no flow-limiting stenosis. B. Femoral system: The common superficial and deep femoral moderate irregularities, but no flow-limiting stenosis. C. Popliteal and infrapopliteal vessels, patent with good 3-vessel runoff to the foot. LEFT LEG: A. Iliac: The common iliac has an ulcerated 80% stenosis. Otherwise, iliacs have only mild irregularities. B. Femoral system: The common superficial and deep femoral moderate irregularities, but no flow-limiting stenosis. C. Popliteal and infrapopliteal vessels are preserved with good 3-vessel runoff to the foot. Percutaneous transluminal angioplasty stent of the left iliac: The balloon and stent used was a 7 x 29 Cordis Sonia. Result was 0% residual stenosis. OVERALL IMPRESSION: Successful percutaneous transluminal angioplasty stent of the left iliac going from 80% initial stenosis to 0% residual. TRANSINT:[id number] Voice Confirmation ID: [id number] DOCUMENT ID: [id number] OPERATIVE REPORT [id number] FERNANDEZ EMMANUEL JULES ARREGUIN MD at 2002 CC: [id number] DICTATION DATE: 05/22/18 1554 PHLEBOTOMY TECH: 05/22/18 1706 DEP CLI 05/22/18 [facility] [address] [place] [address]
[~2018-05-22 09:15] MED LIST changes: +CRESTOR5 MG PO
[2018-05-22 10:46] VITALS: BP 134/69; Ht 152.4 cm; Wt 110.0 kg
[2018-05-22 11:05] LABS: BASOPHILS 0.3 % (0-2); EOSINOPHILS 1.8 % (0-7); HEMATOCRIT 35.3 % (36.0-48.0); HEMOGLOBIN 11.5 g/dL (12-16); IMMATURE GRANULOCYTES 0.2 % (0-5); LYMPHOCYTES 15.3 % (15-50); MCH 29.8 pg (26.0-34.0); MCHC 32.6 g/dL (31.0-37.0); MCV 91.5 fL (80.0-100.0); MEAN PLATELET VOLUME 8.7 fL (7.4-10.4); NEUTROPHILS 74.4 % (40-80); PLATELET COUNT 252 10x3/uL (130-400); RBC 3.86 10x6/uL (4.00-5.40); RDW 13.8 % (11.5-14.5)
[2018-05-22 11:17] LABS: ANION GAP 13.9 mmol/L (8-16); CALCIUM 9.2 mg/dL (8.5-10.1); CARBON DIOXIDE 26.3 mmol/L (21.0-32.0); CREATININE - SERUM 1.3 mg/dL (0.6-1.3); POTASSIUM - SERUM 4.2 mmol/L (3.5-5.1)
[2018-08-04] MEDS ORDERED: CYCLOBENZAPRINE10 MG PO (12:18)
[2018-08-04] MEDS ORDERED: MOBIC7.5 MG PO (12:18)
[2018-08-04] MEDS ORDERED: CRESTOR20 MG PO (12:19)
== END 2018-05-22 18:55 | disposition home or self-care (01) ==
LOC: D.CATH 09:15
PROVIDERS: Internal Medicine Interventional Cardiology
DX: I70.212 Atherosclerosis of native arteries of extremities with intermittent claudication, left leg (principal); Z01.812 Encounter for preprocedural laboratory examination

== ENCOUNTER 2018-08-05 06:16 | Day surgery (SDC) | payer BC ==
[~2018-08-05] VITALS: Ht 152.4 cm; Wt 106.1 kg
--- NOTE | ~2018-08-05 | OP ---
PATIENT NAME: FERNANDEZ EMMANUEL MEDICAL RECORD: [id number] :62 LOCATION:D.[facility]ER[facility] ADMISSION DATE: SURGEON: ALEJANDRA HARTMAN MD DATE OF OPERATION: 08/05/2018 PREOPERATIVE DIAGNOSIS: History of anal cancer in need of surveillance. POSTOPERATIVE DIAGNOSES: History of anal cancer in need of surveillance with one area of induration within the anus, which was biopsied. PROCEDURES: 1. Total colonoscopy to cecum. 2. Anal evaluation under anesthesia. 3. Incisional biopsy of the anus. 4. Anal brushings for surveillance. 5. Ablation of the indurated area with the argon plasma cylinder valve repairer. SURGEON: Alejandra Hartman MD SUPERVISOR PRINTING AND STAMPING: None. BLOOD LOSS: Minimal. ANESTHESIA: General. COMPLICATIONS: None. The risks, possible complications, and alternatives to the procedure were explained to the patient. She elects to proceed. OPERATIVE COURSE: The patient was conveyed to the operating room electively on 08/05/2018. General anesthesia was induced by the anesthesia staff. The patient was placed in the Corbin position. A digital rectal examination was performed. A colonoscope was inserted through the anus. It was easily advanced to the cecum. The prep was inadequate. I slowly withdrew the endoscope. I irrigated and aspirated extensively. Pullback was greater than a 13-minute pullback. A combination of normal imaging and narrow band imaging were utilized. A retroflexed view was obtained in the rectum. I then unretroflexed the scope and removed it under direct vision. The patient was then positioned in the lithotomy position. The buttocks were taped laterally. The anus and perianal areas were sterilely prepped and draped. Utilizing a large anal brush, anal brushings were obtained. I vigorously brushed the anus and then the cells were placed and the cytology fluid sent to pathology. U-shaped anal retractors were placed. I examined the anus as well as the lower rectum. I palpated it as well. Although I could not see any suspicious lesions and no verrucous lesions, there was an area of induration within the anus at the superior aspect at 7 o'clock with the patient in the lithotomy position. I took a pair of ENT forceps and performed an incisional biopsy at this site. I then ablated this tissue with the argon plasma cylinder valve repairer utilizing the right colon setting in the forced mode. A Gelfoam was packed within the anus and lower rectum. A combination of sterile preparation and Marcaine were used to infiltrate the perianal tissues. A topical anesthetic ointment was applied to the external hemorrhoids. OPERATIVE REPORT [id number] FERNANDEZ EMMANUEL Fam The patient was then extubated and conveyed to the post-anesthesia care unit where she was having some chest pain. I will plan to see her in my office in 2-3 weeks. I will plan for her next anal brushings to occur in 3 years and we can perform this in the GI lab under sedation without the need for general anesthesia. TRANSINT:[id number] Voice Confirmation ID: [id number] DOCUMENT ID: [id number] ALEJANDRA HARTMAN MD at 2280 CC: MEMO ROBERSON PURIFOY, SHAWN, TAUTH, JEFFREY and TRU YANEZ [id number] DICTATION DATE: 08/05/18 1142 SENIOR NETWORK SECURITY ARCHITECT: 08/05/18 1155 [facility] 08/05/18 [id number] [place] [address]
[~2018-08-05 06:16] MED LIST changes: +CRESTOR20 MG PO; +CYCLOBENZAPRINE10 MG PO; +MOBIC7.5 MG PO
[2018-08-05 06:51] LABS: BASOPHILS 0.2 % (0-2); EOSINOPHILS 2.9 % (0-7); HEMATOCRIT 38.9 % (36.0-48.0); HEMOGLOBIN 12.9 g/dL (12-16); IMMATURE GRANULOCYTES 0.5 % (0-5); LYMPHOCYTES 13.4 % (15-50); MCH 30.1 pg (26.0-34.0); MCHC 33.2 g/dL (31.0-37.0); MCV 90.9 fL (80.0-100.0); MEAN PLATELET VOLUME 9.2 fL (7.4-10.4); PLATELET COUNT 262 10x3/uL (130-400); RBC 4.28 10x6/uL (4.00-5.40); RDW 14.3 % (11.5-14.5); WBC 8.2 10x3/uL (4.8-10.8)
[2018-08-05 06:57] LABS: ANION GAP 19.7 mmol/L (8-16); CALCIUM 8.6 mg/dL (8.5-10.1); CARBON DIOXIDE 22.4 mmol/L (21.0-32.0); CREATININE - SERUM 1.7 mg/dL (0.6-1.3); POTASSIUM - SERUM 4.1 mmol/L (3.5-5.1)
[2018-08-05 07:05] LABS: APTT 26.6 SECONDS (22.8-39.4); INR 1.01 (0.85-1.17); PROTIME 12.9 SECONDS (11.6-15.0)
[2018-08-05 08:42] VITALS: BP 122/83; BMI 45.7
[2018-08-05 08:54] VITALS: BP 122/83; BMI 45.7
[2018-08-05 13:24] VITALS: Ht 152.4 cm; Wt 106.1 kg
== END 2018-08-05 13:30 | disposition home or self-care (01) ==
LOC: D.OPS 06:16 → D.PAN 08:45 → D.OPS 08:45 → D.PAN 10:45 → D.OPS 13:30
PROVIDERS: Anesthesiology
DX: Z85.048 Personal history of other malignant neoplasm of rectum, rectosigmoid junction, and anus (principal); Z92.21 Personal history of antineoplastic chemotherapy; Z92.3 Personal history of irradiation; Z88.5 Allergy status to narcotic agent; I25.10 Atherosclerotic heart disease of native coronary artery without angina pectoris; I10 Essential (primary) hypertension; E78.5 Hyperlipidemia, unspecified; Z95.5 Presence of coronary angioplasty implant and graft; K21.9 Gastro-esophageal reflux disease without esophagitis; K76.0 Fatty (change of) liver, not elsewhere classified; F41.9 Anxiety disorder, unspecified; Z87.891 Personal history of nicotine dependence; Z79.82 Long term (current) use of aspirin; Z79.1 Long term (current) use of non-steroidal anti-inflammatories (NSAID); Z79.899 Other long term (current) drug therapy; Z01.812 Encounter for preprocedural laboratory examination

== ENCOUNTER → 2018-12-30 12:21 | Outpatient (CLI) | payer BC ==
[2018-08-05 13:24] VITALS: BMI 45.7
[~2018-12-30 12:21] MED LIST changes: +GLUCOPHAGE500 MG PO; +ZIAC 5-6.25 MG1 TAB PO
[2018-12-30 13:26] LABS: CREATININE - SERUM 1.2 mg/dL (0.6-1.3)
== END | disposition home or self-care (01) ==
LOC: D.CT 12:21
PROVIDERS: Internal Medicine Interventional Cardiology
DX: I65.23 Occlusion and stenosis of bilateral carotid arteries (principal)

== ENCOUNTER 2019-01-18 12:57 | Inpatient (IN) | payer BC ==
[~2019-01-18] VITALS: Ht 152.4 cm; Wt 115.2 kg
--- NOTE | ~2019-01-18 | CN ---
PATIENT NAME:FERNANDEZ KEITA MEDICAL RECORD: [id number] : 62 LOCATION:ORALID.CV03 ADMIT DATE: 01/20/19 ACCOUNT: [id number] CONSULTING PHYSICIAN: JULES ARREGUIN MD REFERRING PHYSICIAN: AIMEE MERCEDES MD DATE OF CONSULTATION: 01/22/2019 DIAGNOSES: 1. Premature ventricular contractions. 2. Trigeminy. 3. Hypertension. 4. Hyperlipidemia. 5. Carotid vascular disease. HISTORY OF PRESENT ILLNESS: Mrs. Keita presented for carotid vascular disease, underwent carotid endarterectomy. She has had frequent PVCs and trigeminy. This is not new. She has had this in the past. She is on Ziac for this as well as blood pressure control. Despite the Ziac, she continues to have the frequent dysrhythmia. PHYSICAL EXAMINATION: GENERAL APPEARANCE: Well-nourished, well-developed, appears stated age. Level of distress, comfortable. PSYCHIATRIC: Mental status, alert, normal affect. Orientation, oriented to time, place and person. EYES: Lids and conjunctiva, noninjected. No discharge, no pallor. ENT: Lips, teeth, gums, normal dentition. Oropharynx, no cyanosis, no pallor. NECK: Carotid arteries, bilateral normal upstroke, no bruits, no thrills. JUGULAR VEINS: No jugular venous pressure or distention. CERVICAL LYMPH NODES: Nontender, nonenlarged. THYROID: Not enlarged. Nontender. No nodules. LUNGS: Respiratory effort, unlabored. CHEST: Normal curvature. No thoracic deformity. No chest wall tenderness. Percussion, resonant. Auscultation, clear. No wheezes, no rales, no rhonchi. CARDIOVASCULAR: Precordial exam, nondisplaced. No heaves or pericardial thrills. Rate and rhythm, regular. Heart sounds, normal S1, normal S2. No S3, no gallop, no rub. Systolic murmur, not heard. Diastolic murmur, not heard. EXTREMITIES: No cyanosis, no edema. Peripheral pulses, full and equal in all extremities, except as noted. No bruits appreciated. ABDOMEN: Soft, nondistended. Normal aorta. No bruit. Nontender. No masses. Liver, nontender, no hepatomegaly. Spleen, nontender, no splenomegaly. MUSCULOSKELETAL: No joint tenderness. No joint swelling. No erythema. NEUROLOGICAL: Normal gait, normal strength, normal tone. SKIN: Warm and dry. OVERALL IMPRESSION: Frequent PVCs. Her heart rate and blood pressure, not well controlled with the Ziac. She is on a low dose of this. We will change the Ziac to Toprol 50 every day. Hopefully, this will do a better job controlling her heart rate, blood pressure, and PVCs. TRANSINT:[id number] Voice Confirmation ID: [id number] DOCUMENT ID: [id number] CONSULT REPORT [id number] FERNANDEZ KEITA JEFFREY MD CC: [id number] DICTATION DATE: 01/22/19 1226 PROFESSOR OF ENVIRONMENTAL STUDIES: 01/22/19 1251 ADM IN [facility] [address] [place] [place] [id number]
[~2019-01-18 12:57] MED LIST changes: -GLUCOPHAGE500 MG PO; -ZIAC 5-6.25 MG1 TAB PO
[2019-01-18] MEDS ORDERED: GLUCOPHAGE500 MG PO (13:42)
[2019-01-18] MEDS ORDERED: PLAVIX75 MG PO (13:44)
[2019-01-18 14:56] LABS: HEMATOCRIT 39.7 % (36.0-48.0); HEMOGLOBIN 12.8 g/dL (12-16); MCH 29.9 pg (26.0-34.0); MCHC 32.2 g/dL (31.0-37.0); MCV 92.8 fL (80.0-100.0); MEAN PLATELET VOLUME 9.4 fL (7.4-10.4); RBC 4.28 10x6/uL (4.00-5.40); RDW 14.2 % (11.5-14.5); WBC 8.3 10x3/uL (4.8-10.8)
[2019-01-18 15:16] LABS: APTT 27.4 SECONDS (22.8-39.4); INR 0.98 (0.85-1.17); PROTIME 12.5 SECONDS (11.6-15.0)
[2019-01-18 15:18] LABS: ALBUMIN 3.8 g/dL (3.4-5.0); ANION GAP 19.5 mmol/L (8-16); APPEARANCE CLEAR (CLEAR); BILIRUBIN NEGATIVE (NEGATIVE); BILIRUBIN - TOTAL 0.33 mg/dL (0.2-1.3); CALCIUM 9.8 mg/dL (8.5-10.1); COLOR YELLOW (YELLOW); CREATININE - SERUM 1.4 mg/dL (0.6-1.3); GLUCOSE NEGATIVE (NEGATIVE); KETONE NEGATIVE (NEGATIVE); NITRITE NEGATIVE (NEGATIVE); POTASSIUM - SERUM 4.5 mmol/L (3.5-5.1); PROTEIN NEGATIVE (NEGATIVE); PROTEIN - SERUM 8.1 g/dL (6.4-8.2); SPECIFIC GRAVITY 1.015 (1.005-1.020); UROBILINOGEN NORMAL (NORMAL)
[2019-01-18 15:21] LABS: RED CELLS - URINE OCC /hpf (0-5); WHITE CELLS - URINE 0-5 /hpf (0-5)
[2019-01-18 15:22] LABS: BACTERIA FEW /hpf (NONE SEEN); EPITHELIAL CELLS 0-5 /hpf (0-5)
[2019-01-20] VITALS (39 sets, daily range): BP systolic 100–147; BP diastolic 35–69; BMI 49.9
[2019-01-20] MEDS ORDERED: ZIAC 5-6.25 MG1 TAB PO (09:08)
--- NOTE | 2019-01-20 14:10 | NUR ---
PT ARRIVED IN THE UNIT FROM THE OR. SEE FLOW SHEET. PT LETHARGIC. 15L VIA SIMPLE MASK. NSR WITH PVC'S NOTED. LEFT CAROTID DRESSING C/D/I. LEFT UPPER CHEST DRESSING C/D/I WITH A CICI DRAIN COMPRESSED WITH BLOODY DREAINAGED. RIGHT RADIAL LEXIS NOTED WITH A WRIST PROTECTOR ON. FC NOTED WITH CLEAR LIQUID URINE. CALL LIGHT IN REACH. WILL CONT POC.
--- NOTE | 2019-01-20 14:50 | NUR ---
PT STARTED TO VOMIT. HOB RAISED AND PRN ZOFRAN GIVEN. SEE MAR.
--- NOTE | 2019-01-20 15:00 | NUR ---
NEURO CHECKS REMAINS UNCHANGED. WILL CONT POC.
--- NOTE | 2019-01-20 16:31 | NUR ---
NGT DC'D PER ORDERS. PT HAD A BROWN WATERY BM. PT CLEANED AND LINES CHANGED. HOUSE SUP CALLED FOR HOSPICE BED/ROOM.
--- NOTE | 2019-01-20 17:30 | NUR ---
PT RESTING WITH HER EYES CLOSED. NEURO CHECKS WNL. TRACHEA MIDLINE. NO STRIDOR NOTED. WILL CONT POC.
--- NOTE | 2019-01-20 17:51 | NUR ---
ICE CHIPS PROVIDED FOR THE PT. NO NAUSEA NOTED. PT USING HER IS. PULLING [phone]. CALL LIGHT IN REACH. WILL CONT POC.
--- NOTE | 2019-01-20 18:15 | NUR ---
PT TOLERATING PO FLUIDS WELL. CLEAR LIQUID DIET PROVIDED FOR THE PT. NO ISSUES NOTED. NEURO CHECKS REMAIN THE SAME. TRACHEA MIDLINE. NO STRIDOR. CALL LIGHT IN REACH. WILL CONT POC.
--- NOTE | 2019-01-20 19:00 | NUR ---
BEDSIDE REPORT GIVEN BY DEPARTING RN. PT LAYING IN BED WATCHING ROLAND ON TV. AAOX4. PERRLA. LEFT CAROTID DRESSING NOTED TO BE C,D,I. LEFT UPPER DRESSING WITH CICI DRAIN NOTED WITH BRIGHT RED BLOODY DRAINAGE IN COMPRESSED BULB. RT A-LINE NOTED. F/C DRAINING TO GRAVITY WITH CLR YELLOW URINE NOTED. PT BEGAN TO FEEL NAUSEATED. PRN MEDICATION GIVEN. SEE MAR FOR DETAILS. SAFETY MEASURES IN PLACE. CBIR. WILL CONTINUE TO MONITOR.
--- NOTE | 2019-01-20 20:37 | NUR ---
N&V GONE. INCISIONAL PAIN INCREASING. PRN PAIN MEDICATION GIVEN. SEE MAR FOR DETAILS.
--- NOTE | 2019-01-20 20:55 | NUR ---
N&V BACK IN FULL FORCE. PT THREW UP PAIN MED. PHONED DR. MERCEDES FOR ADDITIONAL NAUSEA MEDICATION AND POSSIBLE SUBSTITUTE IN PAIN MED. ORDERS RECEIVED, VERIFIED, AND READ BACK. SEE MAR FOR DETAILS.
--- NOTE | 2019-01-20 23:18 | NUR ---
NEURO STATUS REMAINS WDP. NO CHANGES IN PT STATUS AT THIS TIME. PT SLEEPING SHOWING NO SS OF DISTRESS. SAFETY MEASURES IN PLACE. CBIR.
[2019-01-21] VITALS (60 sets, daily range): BP systolic 98–145; BP diastolic 40–92; Ht 152.4 cm; Wt 115.2 kg
--- NOTE | 2019-01-21 01:11 | NUR ---
PT ASLEEP SHOWING NO SS OF DISTRESS. TITRATING BP MEDS PER MD ORDER. TOLERATING WELL. NO CHANGES IN PT NEURO STATUS. SAFETY MEASURES IN PLACE. CBIR. WILL CONTINUE TO MONITOR.
--- NOTE | 2019-01-21 03:07 | NUR ---
NO CHANGES IN PT CONDITION. CONTINUES TO USE IS. PULLS 1999. NO CHANGES IN NEURO CHECKS. DENIES ANY NEEDS AT THIS TIME. SAFETY MEASURES IN PLACE. CBIR.
--- NOTE | 2019-01-21 07:00 | NUR ---
REPORT RECEIVED FROM THE OFF GOING RN. SEE ASSESSMENT IN THE PTS FLOW SHEET. PT VSS. NSR ON THE MONITOR. RIGHT JUGULAR DRESSING C/D/I. SWELLING NOTED TO RIGHT JUGULAR. NO STRIDOR NOTED. PT C/O THROAT BEING SORE AND TROUBLE SWALLOWING. PT ABLE TO SWALLOW SMALL SIPS OF WATER. PT REFUSED CLEAR LIQUID DIET AND A POPCICLE AT THIS TIME. ENCOURAGE PO FLUIDS. RIGHT UPPER CHEST DRESSING C/D/I. DR GOLDSTEIN WILL BE NOTIFIED ABOUT SORE THROAT. VSS AT THIS TIME. CALL LIGHT IN REACH. WILL CONT POC.
--- NOTE | 2019-01-21 07:00 | NUR ---
REPORT RECEVIED FROM THE OFF GOING RN. SEE ASSESSMENT IN THE PTS FLOW SHEET. PT LYING IN BED. NEURO CHECKS WNL'S. TRACHEA MIDLINE AND NO STRIDOR NOTED. NO DYSPAGIA NOTED. NSR WITH PVC'S NOTED. ON 2L VIA NC. LEFT JUGULAR DRESSING C/D/I. LEFT UPPER CHEST DRESSING C/D/I. RIGHT SUB CLAVIAN CENTRAL LINE NOTED. SEE IV FLUIDS IN FLOW SHEET. DRESSING C/D/I. RIGHT RADIAL LEXIS NOTED C/D/I WITH WRIST PROTECTOR ON. PT DENIES PAIN AT THIS TIME. VSS. CLEAR LIQUID TRAY PROVIDED FOR THE PT. CALL LIGHT IN REACH. WILL CONT POC.
--- NOTE | 2019-01-21 08:45 | NUR ---
PT C/O INCISIONAL PAIN. PRN ULTRAM GIVEN WITH AM MEDS. NO DYSPAGIA NOTED. WILL CONT POC.
--- NOTE | 2019-01-21 08:58 | NUR ---
DR MERCEDES AT THE PTS BEDSIDE. SEE ORDERS.
--- NOTE | 2019-01-21 09:56 | OP ---
PATIENT NAME: FERNANDEZ EMMANUEL MEDICAL RECORD: [id number] :62 LOCATION:[facility] D.CV03 ADMISSION DATE:01/20/19 SURGEON: JUNG MERCEDES MD DATE OF OPERATION: 01/20/2019 SURGEON: Jung Mercedes MD ANESTHESIA: General endotracheal, Dr. Holman. OPERATION PERFORMED: Left carotid endarterectomy with patch angioplasty. PREOPERATIVE DIAGNOSIS: Severe left internal carotid artery stenosis. POSTOPERATIVE DIAGNOSIS: Severe left internal carotid artery stenosis. INDICATION FOR OPERATION: Severe left internal carotid artery stenosis. FINDINGS OF THE OPERATION: The left internal carotid had an area of stenosis greater than 90%. There were no EEG changes with clamping or unclamping of the carotid artery. ESTIMATED BLOOD LOSS: Less than 50 mL. DESCRIPTION OF PROCEDURE: After informed consent, adequate preoperative medication evaluation, the patient was brought to the operating room, placed on the table in the supine position. After induction of general endotracheal anesthesia and application of appropriate monitoring devices, left neck was prepped and draped in sterile field, utilizing Betadine scrub, alcohol, and Betadine solution. Betadine-impregnated drape was also used. An oblique incision was made in the skin crease. Dissection carried down the fascia. Hemostasis maintained with electrocautery. Facial vein was identified and divided. Utilizing sharp dissection, the common carotid, internal and external carotid arteries were dissected free from surrounding structures, protecting the neurological structures. The patient was given a calculated dose of heparin and 3 minutes, clamps were applied. After 3 minutes, then no EEG change. The arteriotomy was made and extended with Lewis scissors. Artery underwent endarterectomy sharply. Artery underwent extensive debridement and irrigation. Utilizing a CorMatrix vascular patch, a running 7-0 Prolene suture, the arteriotomy was closed with a patch angioplasty technique. All maneuvers to remove trapped air were performed. The clamps removed sequentially. There were no EEG changes. The patient was given a calculated dose of protamine to reverse the heparin. Hemostasis was achieved. A #7 Jaquan-Pierce drain was left in the depths of wound and brought through the base of the neck. Neck was again irrigated. Instrument count and sponge count were correct times 2. Neck was closed in layers utilizing 3-0 Vicryl on the platysma, 5-0 subcuticular Monocryl on the skin. Sterile dressings were applied. The patient tolerated the procedure well and was transferred to CV ICU in satisfactory condition. TRANSINT:[id number] Voice Confirmation ID: [id number] DOCUMENT ID: [id number] OPERATIVE REPORT [id number] FERNANDEZ EMMANUEL EDWARD MD at 0956 CC: [id number] DICTATION DATE: 01/20/19 141 FENCE SETTER: 01/20/19 2200 [place] [address]
--- NOTE | 2019-01-21 10:30 | NUR ---
LEXIS DC WITH THE CATHETER TIP INTACT. DRESSING APPLIED. 10 ML REMOVED FROM THE FC BULB AND FC DC. PT TOLERATED WELL. PT ASSISTED OOB AND INTO THE BEDSIDE CHAIR. GOWN AND LINENS CHANGED. PT TOLERATED WELL. WILL CONT POC.
--- NOTE | 2019-01-21 10:45 | NUR ---
CLEVIPREX AND NITOR WEENED OFF PER ORDERS FOR BP.
--- NOTE | 2019-01-21 12:00 | NUR ---
LUNCH TRAY PROVIDED FOR THE PT. NO ISSUES WITH EATING. VSS. PT VOIDED IN THE TOLIET. UNABLE TO MEASURE IT BUT THE PT SAID WITH WAS A GOOD AMOUNT.
--- NOTE | 2019-01-21 17:19 | NUR ---
DENIES NEEDS AT THIS TIME. VSS. DENIES PAIN. DINNER TRAY PROVIDED. PT EATING WITH NO DYSPAGIA.
--- NOTE | 2019-01-21 18:28 | MORECARE ---
CASE MANAGEMENT DISCHARGE SUMMARY PATIENT: FERNANDEZ CORREIA UNIT: [id number] ADM DATE: 01/20/19 AGE: 58 : 62 SEX: F ROOM/BED: D.[facility] AUTHOR: JOSH,DOC PHYSICIAN: REFERRING PHYSICIAN: AIMEE MERCEDES MD DATE OF SERVICE: 01/21/19 Discharge Plan Patient Name: FERNANDEZ CORREIA Facility: [facility]:[place] : 1960 Planned Disposition: Home Anticipated Discharge Date: Discharge Date: Expected LOS: Initial Reviewer: [email or web address] Initial Review Date: 01/20/2019 Generated: 01/21/19 7:28 pm Comments DCP- Discharge Planning Updated by [id number]: Gia Lopes on 01/21/19 5:[address] Patient Name: FERNANDEZ CORREIA Admission Status: Elective Accout number: [id number] Admission Date: 01-20-2019 : 1960 Admission Diagnosis:OCCLUSION AND STENOSIS OF LEFT CAROTID ARTERY Attending: AIMEE MERCEDES Current LOS: 1 Anticipated DC Date: Planned Disposition: Home Primary Insurance: [employer] OUT OF STATE Discharge Planning Comments: CM met with patient at bedside. Patient states she lives at home with her and plans to return to their home upon discharge. Patient denies any discharge needs at this time. CM will continue to follow and assist as needed with discharge planning / needs. Mine Engineering Supervisor: Gia Lopes DCPIA - Discharge Planning Initial Assessment Updated by [email or web address]: Gia Lopes on 01/21/19 6:22 pm * Is the patient Alert and Oriented? Yes * How many steps to enter\exit or inside your home? * PCP esperanza * Pharmacy [facility] in [place] * Preadmission Environment Home with Family * ADLs Independent * Equipment None * List name and contact numbers for known caregivers / representatives who currently or will assist patient after discharge: juana correia - [phone] c * Verbal permission to speak to the caregivers and representatives has been obtained from the patient. Yes * Community resources currently utilized None * Additional services required to return to the preadmission environment? No * Can the patient safely return to the preadmission environment? Yes * Has this patient been hospitalized within the prior 30 days at any hospital? No Patient Name: FERNANDEZ CORREIA Page [id number] at 1828 All edits/amendments must be made on the electronic document DICTATION DATE: 01/21/191827 STAFF TOXICOLOGIST: MATEO 01/21/191827 RPT#: [id number] DC DATE: STATUS: ADM IN [facility] [address] [place] [address] END OF REPORT
--- NOTE | 2019-01-21 19:16 | NUR ---
BEDSIDE SHIFT REPORT GIVEN BY DEPARTING RN. DOMÍNGUEZ. AAOX4. PERRLA. OOB IN CHAIR. BACK IN BED WITHOUT ASSIST. DENIES ANY NEEDS. FRESH WATER PROVIDED. RT SUBCLAVIAN CVL SALINE LOCKED. C/O PAIN RATING A 8/10 ON PAIN SCALE. ASSESSMENT COMPLETE. NO SS OF DISTRESS. SAFETY MEASURES IN PLACE. CBIR.
--- NOTE | 2019-01-21 22:56 | NUR ---
REASSESSMENT COMPLETE. NO CHANGES NOTED IN PT CONDITION. OOB TO BATHROOM. TOLERATED WELL.
[2019-01-22] VITALS (12 sets, daily range): BP systolic 110–154; BP diastolic 40–81
--- NOTE | 2019-01-22 01:00 | NUR ---
WATER PROVIDED PER PT REQUEST. VSS. WILL CONITNUE TO MONITOR.
--- NOTE | 2019-01-22 03:00 | NUR ---
REASSESSMENT DONE SEE FLOW SHEET. VSS. NO SIGNS OF ACUTE DISTRESS NOTED WILL CONTINUE TO MONITOR. WATER PROVIDED PER PT REQUEST.
--- NOTE | 2019-01-22 05:00 | NUR ---
WATER PROVIDED PT AMBULATED TO BATHROOM. VSS. WILL CONTINUE TO MONITOR.
--- NOTE | 2019-01-22 07:00 | NUR ---
REPORT RECEIVED FROM THE OFF GOING RN. SEE ASSESSMENT IN THE PTS FLOW SHEET. PT ASSISTED OOB. PT HAS A NORMAL STEADY GAIT. PT WENT TO THE BATHROOM AND VOIDED. SHE STATED SHE IS PASSING GAS. PT BACK IN HER BEDSIDE CHAIR. NSR ON THE MONITOR WITH FREQUENT PVC'S. RA. VSS. LEFT NECK DRESSING C/D/I. TRACHEA MIDLINE. NO DYSPAGIA NOTED. NEUROCHECKS WNLS. BREAKFAST TRAY PROVIDED FOR THE PT. PT DENIES NEEDS/PAIN AT THIS TIME. CALL LIGHT IN REACH. WILL CONT POC.
--- NOTE | 2019-01-22 09:00 | NUR ---
PT AMBULATING AD JOSE BACK AND FORTH DOWN THE UNIT WITH NO GAIT ISSUES. PT DENIES PAIN/SOB/DISCOMFORT. WILL MONITOR.
--- NOTE | 2019-01-22 09:51 | NUR ---
PT USING HER IS. PULLING ABOUT 1999. VSS. WILL CONT POC.
--- NOTE | 2019-01-22 11:34 | NUR ---
SPOKE WITH DR ARRIOLA NURSE. SHE WILL NOTIFIY DR ARREGUIN OF CONSULT
--- NOTE | 2019-01-22 12:34 | NUR ---
DR ARREGUIN IN THE UNIT.
[2019-01-22] MEDS ORDERED: TOPROL XL50 MG PO (12:54)
[2019-01-22] MEDS ORDERED: ULTRAM50 MG PO (12:55)
[2019-01-22] MEDS ORDERED: ZOFRAN ODT4 MG/UDTAB PO (13:13)
--- NOTE | 2019-01-22 13:32 | NUR ---
WINSOME MARTINEZ WENT OVER MEDICATION, F/U APPOITMENTS AND WOUND CARE INSTRUCTIONS WITH THE PT WITH THE PRESENT. NO QUESTION AT THIS TIME AND PT UNDERSTANDS INSTRUCTIONS. PT LYING FLAT ON HER BACK AND CENTRAL LINE DC WITH CATHETER TIP INTACT. DRESSING APPLIED. INSTRUCTED TO LYE FLAT FOR 30 MINUTES. F/U APPOINTMENT MADE WITH DR ARREGUIN ON 02/23/19 @ 1290.
--- NOTE | 2019-01-22 14:01 | NUR ---
DRESSING ON SUB CLAVIAN C/D/I. PT DRESSED HERSELF WITH NO ISSUES. VSS. PT DENIES PAIN. NO S/SX OF DISTRESS/DISCOMFORT NOTED. BREATHING NORMAL AND UNLABORED. DC INSTRUCTIONS WENT OVER WITH THE PT. LEFT IN A STABLE CONDTIION.
--- NOTE | 2019-01-22 19:20 | MORECARE ---
CASE MANAGEMENT DISCHARGE SUMMARY PATIENT: FERNANDEZ CORREIA UNIT: [id number] ADM DATE: 01/20/19 AGE: 58 : 62 SEX: F ROOM/BED: D.[facility] AUTHOR: JOSH,DOC PHYSICIAN: REFERRING PHYSICIAN: AIMEE MERCEDES MD DATE OF SERVICE: 01/22/19 Discharge Plan Patient Name: FERNANDEZ CORREIA Facility: [facility]:[place] : 1960 Planned Disposition: Home Anticipated Discharge Date: Discharge Date: 01/22/2019 Expected LOS: Initial Reviewer: [email or web address] Initial Review Date: 01/20/2019 Generated: 01/22/19 8:20 pm Comments DCP- Discharge Planning Updated by [email or web address]: Gia Lopes on 01/21/19 5:[address] Patient Name: FERNANDEZ CORREIA Admission Status: Elective Accout number: [id number] Admission Date: 01-20-2019 : 1960 Admission Diagnosis:OCCLUSION AND STENOSIS OF LEFT CAROTID ARTERY Attending: AIMEE MERCEDES Current LOS: 1 Anticipated DC Date: Planned Disposition: Home Primary Insurance: [employer]$ [employer] OUT OF STATE Discharge Planning Comments: CM met with patient at bedside. Patient states she lives at home with her and plans to return to their home upon discharge. Patient denies any discharge needs at this time. CM will continue to follow and assist as needed with discharge planning / needs. Nurse Discharge: Gia Lopes DCPIA - Discharge Planning Initial Assessment Updated by [email or web address]: Gia Lopes on 01/21/19 6:22 pm * Is the patient Alert and Oriented? Yes * How many steps to enter\exit or inside your home? * PCP esperanza * Pharmacy [facility] in [place] * Preadmission Environment Home with Family * ADLs Independent * Equipment None * List name and contact numbers for known caregivers / representatives who currently or will assist patient after discharge: juana correia - [phone] c * Verbal permission to speak to the caregivers and representatives has been obtained from the patient. Yes * Community resources currently utilized None * Additional services required to return to the preadmission environment? No * Can the patient safely return to the preadmission environment? Yes * Has this patient been hospitalized within the prior 30 days at any hospital? No Last DP export: 01/21/19 5:28 p Patient Name: FERNANDEZ CORREIA Page [id number] at 0 All edits/amendments must be made on the electronic document DICTATION DATE: 01/22/191919 MEDICAL PROGRAM SPECIALIST: MATEO 01/22/191919 RPT#: [id number] DC DATE:01/22/19 STATUS: DIS IN [facility] [address] [place] [address] END OF REPORT
== END 2019-01-22 14:03 | disposition home or self-care (01) | DRG 39 ==
LOC: D.SDCHOLD 01-20 07:30 → D.CVICU 01-20 07:30 → D.SDCHOLD 01-20 11:15 → D.CVICU 01-20 12:28
PROVIDERS: ADMIT Internal Medicine Cardiovascular Disease; ATTEND Internal Medicine Cardiovascular Disease
PROC: 03UL0JZ Supplement Left Internal Carotid Artery with Synthetic Substitute, Open Approach (ICD-10-PCS; 2019-01-20)
PROC: 03CL0ZZ Extirpation of Matter from Left Internal Carotid Artery, Open Approach (ICD-10-PCS; principal; 2019-01-20 11:15)
DX: I65.23 Occlusion and stenosis of bilateral carotid arteries (principal); I49.3 Ventricular premature depolarization; I10 Essential (primary) hypertension; E78.5 Hyperlipidemia, unspecified; E11.9 Type 2 diabetes mellitus without complications

== ENCOUNTER 2019-01-24 14:15 | Emergency (ER) | payer BC ==
[~2019-01-24] VITALS: Ht 152.4 cm; Wt 113.6 kg
[~2019-01-24 14:15] MED LIST changes: +GLUCOPHAGE500 MG PO; +TOPROL XL50 MG PO; +ULTRAM50 MG PO; +ZIAC 5-6.25 MG1 TAB PO; +ZOFRAN ODT4 MG/UDTAB PO
[2019-01-24 14:29] VITALS: Ht 152.4 cm; Wt 113.6 kg
[2019-01-24 17:04] VITALS: BP 154/76
== END 2019-01-24 17:05 | disposition home or self-care (01) ==
LOC: D.ER 14:15
DX: L76.32 Postprocedural hematoma of skin and subcutaneous tissue following other procedure (principal); Z98.890 Other specified postprocedural states

== ENCOUNTER → 2019-02-26 07:57 | Outpatient (CLI) | payer BC ==
[2019-01-24 14:29] VITALS: BMI 48.9
== END | disposition home or self-care (01) ==
LOC: D.HCCARDIO 07:57
PROVIDERS: ATTEND Internal Medicine Interventional Cardiology
DX: I25.10 Atherosclerotic heart disease of native coronary artery without angina pectoris (principal)

== ENCOUNTER → 2019-04-26 13:40 | Outpatient (CLI) | payer BC ==
[2019-01-24 14:29] VITALS: BMI 48.9
--- NOTE | 2019-04-27 14:37 | EC ---
PATIENT:FERNANDEZ EMMAUNEL DATE OF SERVICE: 04/26/19 SEX: F MEDICAL RECORD: [id number] DATE OF : [birth year] LOCATION:[facility] AGE OF PATIENT: 58 ADMISSION DATE: 04/26/19 REFERRING PHYSICIAN: INTERPRETING PHYSICIAN: JULES CASTRO MD ECHOCARDIOGRAM REPORT ECHO CHARGES 4 ECHO COMPLETE Date: 04/26/19 CLINICAL DIAGNOSIS: CAD/ASSESS EF AND VALVAES, DYSPNEA ON EXERTION, PVC/S ECHOCARDIOGRAPHIC MEASUREMENTS (adult normal given) AC root (d.<3.7cm) 3.3 cm LV Septum d (<1.2 cm> 1.4 cm Valve Excursion 1.7 cm LV Septum (systole) 1.6 cm Left Atria (s.<4.0cm> 3.8 cm LVPW d(<1.2cm) 1.6 cm RV (d.<2.3cm) 3.2 cm LVPW (sytole) 1.7 cm LV diastole(<5.6CM) 4.9 cm MV E-F(>70mm/sec) cm LV systole 3.3 cm LVOT Diameter 1.9 cm MV exc.(>10mm) 1.4 cm Est.ejection fraction (50-75%) % DOPPLER: LVIT cm/sec A 71.0 cm/sec E 49.0 cm/sec LA cm/sec RVSP 23 mmHg LVOT 93 cm/sec AOP1/2T m/s Asc. Ao 133 cm/sec RVOT 85 cm/sec RA cm/sec PA 103 cm/sec AV Gradient Peak 7.10 mmHg AV Mean 4.00 mmHg AV Area 2.3 cm MV Gradient Peak 3.20 mmHg MV Mean 1.14 mmHg MV Area cm COMMENTS: American Sign Language Teacher: Daysi LOB[employer] Production Clerks Supervisor: Ashlie Castro TAPE# PACS Pericardial Effusion N DATE OF SERVICE: 04/26/2019 FINDINGS: 1. Left ventricular chamber size is within normal limits. Left ventricular systolic function is normal. Overall ejection fraction is estimated at 60%. 2. Left atrium, right atrium, and right ventricular chamber sizes are within normal limit. 3. Valvular structures have normal structure and motion. 4. Doppler interrogation reveals no significant valvular insufficiency or stenosis. Pulmonary systolic pressure is normal, estimated at 23 mmHg. ECHOCARDIOGRAM REPORT [id number] EMMANUEL,FERNANDEZ A 5. No evidence of pericardial effusion or left ventricular thrombus. TRANSINT:[id number] Voice Confirmation ID: [id number] DOCUMENT ID: [id number] JULES CASTRO MD at 1437 CC: [id number] DICTATION DATE: 04/26/19 1549 LATHE MECHANIC: 04/26/19 1659 DEP CLI 04/26/19 [place] [id number] [place] [id number]
== END | disposition home or self-care (01) ==
LOC: D.HCCARDIO 13:40
PROVIDERS: ATTEND Internal Medicine Interventional Cardiology
DX: I25.10 Atherosclerotic heart disease of native coronary artery without angina pectoris (principal)

== ENCOUNTER 2019-05-07 06:59 | Outpatient (CLI) | payer BC ==
[~2019-05-07] VITALS: Ht 152.4 cm; Wt 111.4 kg
--- NOTE | ~2019-05-07 | HEMODYNAMI ---
PATIENT:FERNANDEZ EMMANUEL MEDICAL RECORD: [id number] : 62 LOCATION:[place] [address] ADMISSION DATE: 05/07/19 Generatedon:05/07/201916:10 Patient name: FERNANDEZ EMMANUEL Patient #: [id number] SSN: D OB: 1960 Date of study: 05/07/2019 Page: Of Hemodynamic Procedure Report Patient Data Patient Demographics Procedure consent was obtained First Name: FERNANDEZ Gender: Female Last Name: CHOLO : 1960 Middle Initial: A Age: 58 year(s) Patient #: [id number] Race: Additional ID: [id number] Contact details [address]: [address] [place] [address] rd State: [place] City: [place] Zip code: [address] Past Medical History History of disease Date Diagnosis Comments Peripheral vascular disease Allergies Allergen Reaction Date Comments Reported Morphine 11/01/2015 Morphine 11/07/2016 Morphine 11/08/2016 Morphine 04/22/2018 Other allergy 05/22/2018 Morphine Other allergy 05/07/2019 MORPHINE, PREDNISONE Admission Admission Data Admission Date: 05/07/2019 Admission Time: 6:59 Admit Source: Other Room #: [facility] Height (in.): 60 BSA: 2.03 (m2) Height (cm.): 152.4 BMI: 47.79 (kg/m2) Weight (lbs.): 244.71 Weight (kg.): 111 Lab Results Lab Result Date: 05/07/2019 Lab Result Time: 0:00 Biochemistry Name Units Result Min Max BUN mg/dl 27 --(----)-* 7 18 Creatinine mg/dl 1.8 --(----)-* 0.6 1.3 CBC Name Units Result Min Max Hematocrit % 36.7 *-(----)-- 42 54 Hemoglobin g/dl 12.1 *-(----)-- 13.5 17.5 Procedure Procedure Types Cath Procedure Diagnostic Procedure Kwon Insertion Peripheral Cath Diagnostic Procedure Abd/Extremity Extremities Left Lower Ext Arterio Peripheral vascular Intervention Stent Stent Iliac w/plasty Initial Procedure Description Procedure Date Procedure Date: 05/07/2019 Procedure Start Time: 15:55 Procedure End Time: 16:07 Procedure Staff Name Function Chan Castro MD Performing Physician Ramin Waldron RT Monitor Mani Boyer RT Scrub Chitra Braxton RN Nurse Fahad Webb RN Nurse Procedure Data Cath Procedure Fluoroscopy Diagnostic fluoroscopy Total fluoroscopy Time: 1.7 time: 1.7 min min Diagnostic fluoroscopy Total fluoroscopy dose: 496 dose: 496 mGy mGy Contrast Material Contrast Material Type Amount (ml) Isovue 300 68 Entry Location Entry Primary Successful Side Size Upsize Upsize Entry Closure Succes sful Closure Location (Fr) 1 (Fr) 2 (Fr) Remarks Device Remarks Femoral Right 5 Fr Exoseal artery Estimated blood loss: 10 ml Diagnostic catheters Device Type Used For End Catheter Placement DIAGNOSTIC IMT 5Fr Procedure Catheter ([id number]) Procedure Medications Medication Administration Route Dosage Oxygen etCO2 Nasal cannula 2 l/min Lidocaine 2% added to field 20 Heparin Flush Bag added to field 2 bags (1000units/500ml NS) 0.9% NaCl I.V. 100 ml/hr Versed I.V. 1 mg Fentanyl I.V. 50 mcg Versed I.V. 1 mg Fentanyl I.V. 50 mcg Hemodynamics Rest BSA: 2.03 (m2) HGB: 12.1 (g/dl) O2 Consumption: Estimated: 201.09 (ml/min) O2 Co nsumption indexed: Estimated:99.06 (ml/min/m) Heart Rate: 79 (bpm) Snapshots Pre Cath Intra NCS Post Cath Vital Signs Time Heart Resp SPO2 etCO2 NIBP (mmHg) Rhythm Pain Sedation Rate (ipm) (%) (mmHg) Status Level (bpm) 15:43:16 71 23 80 17.2 Measuring NSR 0 (11) 10(A) , No pain 15:46:57 76 24 100 34.4 158/103(111) NSR 0 (11) 10(A) , No pain 15:51:11 56 37 95 32.9 144/87(134) NSR 0 (11) 10(A) , No pain 15:55:23 65 15 98 42.6 142/76(115) NSR 0 (11) 10(A) , No pain 15:59:35 71 14 98 41.1 120/73(105) NSR 0 (11) 9(A) , No pain 16:04:42 70 23 96 42.6 128/74(103) NSR 0 (11) 10(A) , No pain Medications Time Medication Route Dose Verified Delivered Reason Notes Eff ectiveness by by 15:46:52 Oxygen etCO2 2 Chan Buffie used for Nasal l/min Gloria Webb RN procedure cannula 15:46:59 Lidocaine 2% added 20ml Chan Chan for local to vial Gloria Castro MD anesthetic field 15:47:05 Heparin Flush added 2 Chan Chan used for Bag to bags Gloria Castro MD procedure (1000units/500ml field NS) 15:47:13 0.9% NaCl I.V. 100 Chan Buffie Per ml/hr Gloria Webb RN physician 15:55:29 Versed I.V. 1 mg Chan Vazquezie for Gloria Webb RN sedation 15:55:35 Fentanyl I.V. 50 Chan Buffie for mcg Gloria Webb RN sedation 15:58:42 Versed I.V. 1 mg Chanvikash Vazquezie for Gloria Webb RN sedation 15:59:46 Fentanyl I.V. 50 Chan Buffie for mcg Gloria Webb RN sedation Procedure Log Time Note 15:15:08 Flaco [place] RN sent for patient. Start room use. 15:32:59 Patient Height : 60 inches 15:32:59 Patient Weight : 244.71 lbs 15:33:18 Time tracking: Regular hours (M-F 7:00 - 5:00) 15:33:21 Plan of Care:Hemodynamics will remain stable., Cardiac rhythm will remain stable., Comfort level will be maintained., Respiratory function will remain adequate., Patient/ family verbilizes understanding of procedure., Procedure tolerated without complication., Recovers from procedure without complications.. 15:33:33 Patient received from Pre/Post Procedure Room to CCL 1 Alert and oriented. Tansferred to table in Supine position. 15:33:34 Warm blankets applied, and nisha hugger turned on for patient comfort. 15:33:34 Correct patient and procedure confirmed by team. 15:33:36 Signed procedure consent form obtained from patient. 15:33:37 ECG and BP/O2 sat monitors applied to patient. 15:37:18 Pt brought back to the Order Administrator due to LLQ and Left Leg pain. Physician believes pt is bleeding from left groin access site. 15:37:42 Procedure type changed to Cath procedure, Diagnostic procedure, Kwon Insertion, Peripheral Cath Diagnostic Procedure, Abd/Extremity, Extremities, Left Lower Ext Arterio, Peripheral vascular Intervention, Stent, Stent Iliac w/plasty Initial 15:37:52 KWON 16FR w/Drainage Bag ([id number]) opened to sterile field. 15:41:27 Vital chart was started 15:41:38 Baseline sample Acquired. 15:41:45 Rhythm: sinus rhythm 15:41:47 Full Disclosure recording started 15:42:03 H&P Date Dictated: 05/07/2019 Within 30 days and on chart.. 15:45:24 Pre-procedure instructions explained to patient. 15:45:25 Pre-op teaching completed and patient verbalized understanding. 15:45:27 Family in patients room. 15:46:52 Oxygen 2 l/min etCO2 Nasal cannula was administered by Fahad Webb RN; used for procedure; 15:46:59 Lidocaine 2% 20ml vial added to field was administered by Chan Castro MD; for local anesthetic; 15:47:05 Heparin Flush Bag (1000units/500ml NS) 2 bags added to field was administered by Chan Castro MD; used for procedure; 15:47:05 MRS EMMANUEL BROUGHT BACK TO PERFORM EXTREMITY ARTERIOGRAM OF THE LEFT ILIAC AND FEMORAL AREA FOR BLEEDING. 15:47:13 0.9% NaCl 100 ml/hr I.V. was administered by Fahad Webb RN; Per physician; 15:47:49 Is the patient allergic to Iodine/contrast media? No. 15:48:10 IV patent on arrival in right antecubital with 0.9% NaCl at O. 15:50:21 HGB 10.7 HCT 32.8 15:50:29 Right groin area was prepped with chlora-prep and draped in sterile fashion 15:50:31 Alarms reviewed by R. N. 15:50:32 Sharps counted by scrub and verified by R.N. 15:50:33 Physician paged 15:54:28 Physician arrived 15:54:29 --------ALL STOP TIME OUT------ 15:54:30 Final Timeout: patient, procedure, and site verified with staff and physician. All members of the team are in agreement. 15:54:31 Right groin site verified by team. 15:54:37 Maximum allowable Isovue 300 dose 300ml. Physician notified. (300ml for normal creatinines. For patients with creatinine of 1.7 or higher multiply weight(kg) x 5 divided by creatinine.) 15:54:42 Fire Safety Assessment: A--An alcohol-based skin anteseptic being used preoperatively., C--Open oxygen or nitrous oxide is being used., D--An ESU, laser, or fiber-optic light is being used. 15:54:47 Physical assessment completed. ASA score P 2 - A patient with mild systemic disease as per Chan Castro MD. 15:54:58 Sedation plan: IV Moderate Sedation Medication:Versed, Fentanyl 15:55:12 Use device set Femoral Dx 15:55:15 Bag Decanter (2002S) opened to sterile field. 15:55:16 ACIST Syringe (87471) opened to sterile field. 15:55:17 Medline Cath Pack ([id number]) opened to sterile field. 15:55:18 DIAGNOSTIC WIRE .035 260cm J wire (485256) opened to sterile field. 15:55:21 ACIST Hand Control (21024) opened to sterile field. 15:55:22 ACIST Manifold (01115) opened to sterile field. 15:55:25 Tegaderm 4 x 4 (1626W) opened to sterile field. 15:55:26 SHEATH 5FR [place] (XQZ250) opened to sterile field. 15:55:29 Versed 1 mg I.V. was administered by Fahad Webb RN; for sedation; 15:55:35 Fentanyl 50 mcg I.V. was administered by Fahad Webb RN; for sedation; 15:55:45 Procedure started. 15:55:49 Local anesthetic to right femoral artery with Lidocaine 2% by Chan Castro MD.INITIAL ACCESS ONLY 15:56:47 A 5 Fr sheath was inserted into the Right Femoral artery 15:57:14 Right leg runoff performed. 15:57:49 GLIDE WIRE Super Stiff Angled 260cm (RH5715) opened to sterile field. 15:57:59 A DIAGNOSTIC IMT 5Fr Catheter ([id number]) was advanced over the wire and used for Procedure. 15:58:18 GLIDE WIRE AND IMT ADVANCED FOR AROUND THE HORN 15:58:42 Versed 1 mg I.V. was administered by Fahad Webb RN; for sedation; 15:58:58 Left leg runoff performed. 15:59:46 Fentanyl 50 mcg I.V. was administered by Fahad Webb RN; for sedation; 16:00:22 NO BLEEDING NOTED 16:01:42 EXOSEAL 5Fr (EX500) opened to sterile field. 16:02:53 Sheath removed intact; hemostasis achieved with Exoseal to the Right Femoral artery. 16:03:16 Procedure ended.(Physican Out) 16:04:56 Fluoroscopy time 01.70 minutes. 16:05:03 Fluoroscopy dose: 496 mGy 16:05:03 Flurop Dose total: 496 16:05:11 Contrast amount:Isovue 300 68ml. 16:05:27 Sharps counted by scrub and verified by R.N. 16:05:33 Insertion/operative site no bleeding no hematoma. 16:05:38 Post-op/insertion site Right Femoral artery dressed using a 4 x 4 and Tegaderm. 16:05:43 Post right femoral artery:stable 16:06:31 Post-procedure physical assessment completed. ASA score P 2 - A patient with mild systemic disease as per Chan Castro MD. 16:06:37 Post procedure rhythm: sinus rhythm 16:06:42 Estimated blood loss: 10 ml 16:06:44 Patient needs reinforcement of post procedure teaching. 16:07:39 Procedure and supply charges have been captured, reviewed, submitted and are correct. 16:07:40 Vital chart was stopped 16:07:41 See physician's report for complete and final results. 16:07:44 Report given to PCU. 16:07:52 Patient transfered to PCU with Bed. 16:07:56 Procedure ended. 16:07:56 Full Disclosure recording stopped 16:08:01 End room use (Document Last) Device Usage Item Name Manufacture Quantity Catalog Number Hospital Part Current Minim al Lot# / Charge Number Stock Stock Serial# Code KWON 16FR Bard 1 [id number] [id number] 486162 5 w/Drainage Bag (133351R) Bag Microtek 1 [id number] 44449 035507 5 Decanter [employer] Inc. (2001S) ACIST Acist 1 52530 922590 900384 862698 20 Syringe Medical (62307) Systems Inc Medline Medline 1 [id number] 171297 93167 160032 5 Cath Pack ([id number]) DIAGNOSTIC St Roney 1 033778 986696 438072 174329 30 WIRE .035 260cm J wire (003677) ACIST Hand Acist 1 24109 904745 970951 527880 5 Control Medical (95024) Systems Inc ACIST Acist 1 13239 914862 009069 264703 5 Manifold Medical (44309) Systems Inc Tegaderm 4 3M 1 1626W 320845 468177 016438 5 x 4 (1626W) SHEATH 5FR Terumo 1 XAP100 328995 801352 571834 5 [place] (MAR599) GLIDE WIRE Terumo 1 UF1020 017187 714717 711652 5 Super Stiff Angled 260cm (KJ6024) DIAGNOSTIC [place] 1 [id number] 185508 812266 44586 5 IMT 5Fr Scientific Catheter ([id number]) EXOSEAL 5Fr Cardinal 1 EX500 491915 473872 371912 10 (EX500) Health Signature Audit [place] Stage Time Signature Unsigned Intra-Procedure 05/07/2019 Ramin Waldron 4:09:57 PM RT(R) (CV) Signatures Monitor : Ramin Waldron RT Signature : Date : Time : [place] [id number] [place] [address]
--- NOTE | ~2019-05-07 | HEMODYNAMI ---
PATIENT:FERNANDEZ EMMANUEL MEDICAL RECORD: [id number] : 62 LOCATION:[facility] ADMISSION DATE: 05/07/19 Generatedon:05/10/20198:43 Patient name: FERNANDEZ EMMANUEL Patient #: [id number] SSN: D OB: 1960 Date of study: 05/07/2019 Page: Of Hemodynamic Procedure Report Patient Data Patient Demographics Procedure consent was obtained First Name: FERNANDEZ Gender: Female Last Name: CHOLO : 1960 [facility] Initial: A Age: 58 year(s) Patient #: [id number] Race: Additional ID: [id number] Contact details [address]: [address] [place] [address] rd State: [place] City: [place] Zip code: [address] Past Medical History History of disease Date Diagnosis Comments Peripheral vascular disease Allergies Allergen Reaction Date Comments Reported Morphine 11/01/2015 Morphine 11/07/2016 Morphine 11/08/2016 Morphine 04/22/2018 Other allergy 05/22/2018 Morphine Other allergy 05/07/2019 MORPHINE, PREDNISONE Admission Admission Data Admission Date: 05/07/2019 Admission Time: 6:59 Admit Source: Other Room #: D.2122 Height (in.): 60 BSA: 2.03 (m2) Height (cm.): 152.4 BMI: 47.79 (kg/m2) Weight (lbs.): 244.71 Weight (kg.): 111 Lab Results Lab Result Date: 05/07/2019 Lab Result Time: 0:00 Biochemistry Name Units Result Min Max BUN mg/dl 27 --(----)-* 7 18 Creatinine mg/dl 1.8 --(----)-* 0.6 1.3 CBC Name Units Result Min Max Hematocrit % 36.7 *-(----)-- 42 54 Hemoglobin g/dl 12.1 *-(----)-- 13.5 17.5 Procedure Procedure Types Cath Procedure Peripheral Cath Diagnostic Procedure Letterpress Setter Peripheral Procedures Uxylf-Baxolwn-Rrm-Off Peripheral vascular Intervention Stent Stent Iliac w/plasty Initial Procedure Description Procedure Date Procedure Date: 05/07/2019 Procedure Start Time: 9:45 Procedure End Time: 10:13 Procedure Staff Name Function Ratna Cuadra RT Monitor Fahad Webb RN Elephant Tamer Chan Castro MD Performing Physician Brook Gamboa RT Scrub Chitra Braxton RN Nurse Mani Boyer RT Elephant Tamer Procedure Data Cath Procedure Fluoroscopy Diagnostic fluoroscopy Total fluoroscopy Time: 5 time: 5 min min Diagnostic fluoroscopy Total fluoroscopy dose: 530 dose: 530 mGy mGy Contrast Material Contrast Material Type Amount (ml) Isovue 370 86 Entry Location Entry Primary Successful Side Size Upsize Upsize Entry Closure Succes sful Closure Location (Fr) 1 (Fr) 2 (Fr) Remarks Device Remarks Femoral Left 5 Fr 6 Fr 6 Fr Exoseal artery Long Short Estimated blood loss: 5 ml Diagnostic catheters Device Type Used For End Catheter Placement DIAGNOSTIC UF 5Fr Multi-vessel catheter ([id number]) Angiography DIAGNOSTIC IMT 5Fr Multi-vessel Catheter ([id number]) Angiography Procedure Complications No complications Procedure Medications Medication Administration Route Dosage 0.9% NaCl I.V. 100 ml/hr Oxygen etCO2 Nasal cannula 2 l/min Lidocaine 2% added to field 20 Heparin Flush Bag added to field 2 bags (1000units/500ml NS) Versed I.V. 2 mg Fentanyl I.V. 50 mcg Fentanyl I.V. 50 mcg Fentanyl I.V. 50 mcg Heparin Bolus I.V. 4000 units Hemodynamics Rest BSA: 2.03 (m2) HGB: 12.1 (g/dl) O2 Consumption: Estimated: 188.58 (ml/min) O2 Co nsumption indexed: Estimated:92.9 (ml/min/m) Heart Rate: 63 (bpm) Snapshots Pre Cath Intra NCS Post Cath Vital Signs Time Heart Resp SPO2 etCO2 NIBP (mmHg) Rhythm Pain Status Sedation Rate (ipm) (%) (mmHg) Level (bpm) 9:30:01 66 27 100 33 121/53(73) NSR 0 (11) , No 10(A) pain 9:35:26 63 22 97 36.1 122/82(108) NSR 0 (11) , No 10(A) pain 9:39:42 66 13 97 35.3 125/72(105) NSR 0 (11) , No 10(A) pain 9:44:02 67 14 97 39.1 133/81(124) NSR 0 (11) , No 10(A) pain 9:48:25 73 15 98 42.1 150/84(124) NSR 0 (11) , No 10(A) pain 9:52:49 68 16 97 33.1 147/81(117) NSR 4 (11) , 10(A) Distressing 9:57:23 70 20 100 35.3 127/64(102) NSR 4 (11) , 10(A) Distressing 10:02:45 72 14 97 42.9 157/86(123) NSR 0 (11) , No 9(A) pain 10:07:15 68 13 98 44.3 159/79(118) NSR 0 (11) , No 9(A) pain 10:12:51 70 14 98 42.9 147/75(117) NSR 0 (11) , No 10(A) pain Medications Time Medication Route Dose Verified Delivered Reason Notes Effectiveness by by 9:32:50 0.9% NaCl I.V. 100 Chan Chitra used for ml/hr Gloria Braxton pest controller 9:32:56 Oxygen etCO2 2 Chan Chitra used for Nasal l/min Gloria Braxton procedure cannula RN 9:33:01 Lidocaine 2% added 20ml Chan Chan for local to vial Gloria Castro MD anesthetic field 9:33:05 Heparin Flush added 2 Chan Chan used for Bag to bags Gloria Castro MD procedure (1000units/500ml field NS) 9:44:05 Fentanyl I.V. 50 Chan Chitra for sedation mcg Gloria Braxton RN 9:44:55 Versed I.V. 2 mg Chan Chitra for sedation Gloria Braxton RN 9:50:14 Fentanyl I.V. 50 Chan Chitra for sedation mcg Gloria Braxton RN 9:56:56 Fentanyl I.V. 50 Chan Chitra for sedation mcg Gloria Braxton RN 10:03:05 Heparin Bolus I.V. 4000 Chan Chitra for verif ied units Gloria Braxton anticoagulation with Dr. MICHELLE Castro Procedure Log Time Note 9:03:30 Signed procedure consent form obtained from patient. 9:03:31 Diagnostic Cath status Elective 9:03:33 Time tracking: Regular hours (M-F 7:00 - 5:00) 9:03:38 Plan of Care:Hemodynamics will remain stable., Cardiac rhythm will remain stable., Comfort level will be maintained., Respiratory function will remain adequate., Patient/ family verbilizes understanding of procedure., Procedure tolerated without complication., Recovers from procedure without complications.. 9:09:30 Patient Weight : 244.71 lbs 9:09:35 Patient Height : 60 inches 9:10:24 Patient allergic to Other allergyMORPHINE, PREDNISONE 9:10:50 Fahad Webb RN sent for patient. Start room use. 9::46 Lab Result : Hemoglobin 12.1 g/dl 9::46 Lab Result : Hematocrit 36.7 % 9::46 Lab Result : BUN 27 mg/dl 9::46 Lab Result : Creatinine 1.8 mg/dl 9:24:28 Patient received from Pre/Post Procedure Room to CCL 1 Alert and oriented. Tansferred to table in Supine position. 9:24:30 Correct patient and procedure confirmed by team. 9:24:30 Warm blankets applied, and nisha hugger turned on for patient comfort. 9:24:31 ECG and BP/O2 sat monitors applied to patient. 9:28:31 Vital chart was started 9:32:50 0.9% NaCl 100 ml/hr I.V. was administered by Chitra Braxton RN; used for procedure; 9:32:56 Oxygen 2 l/min etCO2 Nasal cannula was administered by Chitra Braxton RN; used for procedure; 9:33:01 Lidocaine 2% 20ml vial added to field was administered by Chan Castro MD; for local anesthetic; 9:33:05 Heparin Flush Bag (1000units/500ml NS) 2 bags added to field was administered by Chan Castro MD; used for procedure; 9:39:24 Baseline sample Acquired. 9:39:28 Rhythm: sinus rhythm 9:39:29 Full Disclosure recording started 9:39:34 H&P Date Dictated: 05/07/2019 Within 30 days and on chart., H&P Addendum completed by physician on day of procedure. (MUST COMPLETE FOR ALL OUTPATIENTS). 9:39:35 Pre-procedure instructions explained to patient. 9:39:36 Pre-op teaching completed and patient verbalized understanding. 9:39:47 Family in patients room. 9:39:50 Patient NPO since Midnight. 9:39:52 Is the patient allergic to Iodine/contrast media? No. 9:39:53 Was the patient premedicated? No 9:39:54 Is patient on blood thinner?Yes 9:39:58 ACC The patient was administered the following blood thiners within the last 24 hours: ACCPlavix, Xarelto 9:40:01 Patient diabetic? Yes. 9:40:02 If diabetic: On Metformin? Yes 9:40:05 If on Metformin: Last Dose? 05/05/2019 9:40:08 Previous problem with sedation/anesthesia? No ? 9:40:11 Snore? Yes 9:40:12 Sleep apnea? Yes 9:40:15 Deviated septum? No 9:40:16 Opens mouth fully? Yes 9:40:17 Sticks out tongue? Yes 9:40:27 Airway obstruction? No ? 9:40:30 Dentures? No ? 9:40:33 Pre procedure: right dorsailis pedis pulse 2+ Normal; easily identifiable; not easily obliterated 9:40:35 Pre procedure: left dorsailis pedis pulse 2+ Normal; easily identifiable; not easily obliterated 9:40:37 Patient pain scale 0/10 ?. 9:40:51 IV patent on arrival in right antecubital with 0.9% NaCl at KVO. 9:40:53 Lab results completed and on chart. 9:41:02 Bilateral groins area was prepped with chlora-prep and draped in sterile fashion 9:41:03 Alarms reviewed by R. N. 9:41:04 Sharps counted by scrub and verified by R.N. 9:41:54 Admit Source: Other 9:43:26 --------ALL STOP TIME OUT------ 9:43:26 Physician arrived 9:43:28 Final Timeout: patient, procedure, and site verified with staff and physician. All members of the team are in agreement. 9:43:30 Bilateral groins site verified by team. 9:43:34 Maximum allowable Isovue 370 dose 300ml. Physician notified. (300ml for normal creatinines. For patients with creatinine of 1.7 or higher multiply weight(kg) x 5 divided by creatinine.) 9:43:38 Fire Safety Assessment: A--An alcohol-based skin anteseptic being used preoperatively., C--Open oxygen or nitrous oxide is being used., D--An ESU, laser, or fiber-optic light is being used. 9:43:42 Physical assessment completed. ASA score P 2 - A patient with mild systemic disease as per Chan Castro MD. 9:43:47 Sedation plan: IV Moderate Sedation Medication:Versed, Fentanyl 9:43:56 Use device set CATH PACK 9:43:58 ACIST Hand Control (78931) opened to sterile field. 9:43:58 ACIST Syringe (64219) opened to sterile field. 9:43:59 Medline Cath Pack ([id number]) opened to sterile field. 9:43:59 ACIST Manifold (22507) opened to sterile field. 9:44:00 DIAGNOSTIC WIRE .035 260cm J wire (496668) opened to sterile field. 9:44:00 Bag Decanter (2002S) opened to sterile field. 9:44:05 Fentanyl 50 mcg I.V. was administered by Chitra Braxton RN; for sedation; 9:44:55 Versed 2 mg I.V. was administered by Chitra Braxton RN; for sedation; 9:45:09 Procedure started. 9:45:13 Local anesthetic to right femoral artery with Lidocaine 2% by Chan Castro MD.INITIAL ACCESS ONLY 9:45:21 SHEATH 5FR Quilcene (LYJ350) opened to sterile field. 9:47:07 SHEATH 5FR Quilcene (PEO851) opened to sterile field. 9:47:56 right femoral access gained; difficulty advancing 5F Quilcene sheath 9:49:23 wire and needle removed; Dr Castro holding manual pressure on right femoral artery 9:50:14 Fentanyl 50 mcg I.V. was administered by Chitra Braxton RN; for sedation; 9:50:56 AMPLATZ Super stiff 180cm wire ([id number]) opened to sterile field. 9:53:15 Timer 1 started at 9:48 AM, stopped at 9:53 AM, duration 00:05:14 sec. 9:54:57 Dr Castro done holding manual pressure; right groin stable; no hematoma noted 9:55:01 Local anesthetic to left femerol artery with Lidocaine 2% by Chan Castro MD.ADDITIONAL ACCESS 9:56:52 A 5 Fr sheath was inserted into the Left Femoral artery 9:56:56 Fentanyl 50 mcg I.V. was administered by Chitra Braxton RN; for sedation; 9:57:04 A DIAGNOSTIC UF 5Fr catheter (073663O2) was advanced over the wire and used for Multi-vessel Angiography. 9:57:50 Abdominal angiogram w/ runoff was performed. 9:58:06 Injector settings: Ml/sec: 10, Volume: 20, 9:59:02 Proceeding to intervention. 9:59:02 Catheter removed. 9:59:33 GLIDE WIRE Super Stiff Angled 260cm (ED7486) opened to sterile field. 9:59:36 INFLATOR Merit BasixCompak (RI3599) opened to sterile field. 9:59:37 SHEATH 6FR Brite Tip 35cm (021294X) opened to sterile field. 9:59:43 SHEATH 6FR Quilcene (JHK285) opened to sterile field. 9:59:57 Sheath upsized to a 6 Fr Long. 10:00:11 A DIAGNOSTIC IMT 5Fr Catheter ([id number]) was advanced over the wire and used for Multi-vessel Angiography. 10:01:19 TORQUE DEVICE PLASTIC .038 ( TD01) opened to sterile field. 10:02:54 Right leg runoff performed. 10:03:01 Catheter removed. 10:03:05 Heparin Bolus 4000 units I.V. was administered by Chitra Braxton RN; for anticoagulation; verified with Dr. Castro 10:03:14 amplatz wire advanced. 10:05:23 amplatz wire removed; stiff glide wire advanced across lesion 10:07:44 glide wire removed;exchanged for choice pt extra support 10:07:48 Wire advanced across lesion. 10:09:25 Place stent Inflation Number: 1 A PALMAZ BLUE 6 x 18 x 135 stent ([id number]) was prepped and advanced across the Mid Common Iliac, Left 80. The stent was deployed at 15 FREDERICK for 0:10 (min:sec) 0. 10:09:43 Stent catheter was removed intact over wire. 10:09:45 Wire removed. 10:10:36 Sheath removed intact; hemostasis achieved with Exoseal to the Left Femoral artery. 10:10:36 Sheath upsized to a 6 Fr Short. 10:11:04 Procedure ended.(Physican Out) 10:11:51 Fluoroscopy time 05.00 minutes. 10:11:57 Fluoroscopy dose: 530 mGy 10:11:57 Flurop Dose total: 530 10:12:01 Contrast amount:Isovue 370 86ml. 10:12:03 Sharps counted by scrub and verified by R.N. 10:12:04 Insertion/operative site no bleeding no hematoma. 10:12:07 Post-op/insertion site Left Femoral artery dressed using a 4 x 4 and Tegaderm. 10:12:22 Post Procedure Pulses reassessed and unchanged 10:12:25 Post procedure rhythm: unchanged. 10:12:28 Estimated blood loss: 5 ml 10:12:30 Patient needs reinforcement of post procedure teaching. 10:12:30 Post procedure instruction explained to patient.Patient verbalizes understanding. 10:12:48 Procedure type changed to Cath procedure, Peripheral Cath Diagnostic Procedure, Letterpress Setter Peripheral Procedures, Fjfkd-Fiidlxm-Dsq-Off, Peripheral vascular Intervention, Stent, Stent Iliac w/plasty Initial 10:12:50 Procedure and supply charges have been captured, reviewed, submitted and are correct. 10:12:55 Procedure Complication : No complications 10:12:57 Vital chart was stopped 10:12:58 See physician's report for complete and final results. 10:13:02 Report given to Pre/Post Procedure Room. 10:13:05 Patient transfered to Pre/Post Procedure Room with Stretcher. 10:13:07 Full Disclosure recording stopped 10:13:07 Procedure ended. 10:13:15 ACC-PCI Only Patient was given prescriptions, or instructed by Chan Castro MD to start/continue the following medications upon discharge: Plavix 10:13:17 End room use (Document Last) 10:15:20 EXOSEAL 6Fr (EX600) opened to sterile field. Intervention Summary Intervention Notes Time ActionType Lesion and Equipment Action# Pressure Duration Attributes Used 10:09:25 Place stent Mid Common PALMAZ BLUE 1 15 00:10 Iliac, Left 6 x 18 x 135 stent ([id number]) Device Usage Item Name Manufacture Quantity Catalog Number Hospital Part Current Mini mal Lot# / Charge Number Stock Stock Serial# Code ACIST Acist 1 75631 978805 771744 791370 20 Syringe Medical (50545) Systems Inc ACIST Hand Acist 1 40282 858288 170582 653760 5 Control Medical (11811) Systems Inc ACIST Acist 1 42766 695269 858839 995774 5 Manifold Medical (11055) Systems Inc Medline Cath Medline 1 [id number] 424632 57059 106803 5 Pack ([id number]) Bag Decanter Microtek 1 2001S 112196 46114 088673 5 (2001S) Medical Inc. DIAGNOSTIC St Roney 1 264607 261487 822570 152758 30 WIRE .035 260cm J wire (860403) SHEATH 5FR Terumo 2 ILE510 355738 961689 967615 5 Quilcene (FDY785) AMPLATZ [place] 1 [id number] 199330 212881 175164 5 Super stiff Scientific 180cm wire ([id number]) DIAGNOSTIC Cardinal 1 482120N8 161685 119400 049902 10 UF 5Fr Health catheter (299520V4) GLIDE WIRE Terumo 1 SS0336 554807 457547 389240 5 Super Stiff Angled 260cm (WB6365) INFLATOR Merit 1 QG6405 560544 818016 531803 15 [facility] [place] Medical BasixCompak (VY7826) SHEATH 6FR Cardinal 1 110507Y 452953 806514 386593 1 Brite Tip Health 35cm (808173U) SHEATH 6FR Terumo 1 XCC675 449586 938346 549497 40 Quilcene (FTC695) DIAGNOSTIC [place] 1 [id number] 600919 706523 32552 5 IMT 5Fr Scientific Catheter (963869829) TORQUE [place] 1 TD01 480535 197095 035376 5 DEVICE Scientific PLASTIC .038 ( TD01) EXOSEAL 6Fr Cardinal 1 EX600 806623 629379 234483 10 (EX600) Health PALMAZ BLUE Cardinal 1 [id number] 026692 796157 346283 5 [id number] 6 x 18 x 135 Health stent ([id number]) Signature Audit [place] Stage Time Signature Unsigned Intra-Procedure 05/07/2019 Ratna JENKINS(R) 10:16:43 AM RT(R) 05/10/2019 8:39:31 AM Intra-Procedure 05/10/2019 Mani Boyer 8:43:18 AM RT(R) Signatures Monitor : Ratna Cuadra RT Signature : Date : Time : [facility] [address] [place] [address]
[2019-05-07] MEDS ORDERED: NORVASC5 MG PO (07:45)
[2019-05-07] MEDS ORDERED: XARELTO10 MG PO (07:47)
[2019-05-07] MEDS ORDERED: WELLBUTRIN SR150 MG PO (07:48)
[2019-05-07] MEDS ORDERED: PEPCID AC20 MG PO (07:51)
[2019-05-07 07:56] VITALS: BP 135/70; BMI 47.9
[2019-05-07 08:17] LABS: BASOPHILS 0.2 % (0-2); EOSINOPHILS 2.9 % (0-7); HEMATOCRIT 36.7 % (36.0-48.0); HEMOGLOBIN 12.1 g/dL (12-16); IMMATURE GRANULOCYTES 0.7 % (0-5); LYMPHOCYTES 11.3 % (15-50); MCH 29.9 pg (26.0-34.0); MCV 90.6 fL (80.0-100.0); MONOCYTES 12.6 % (2-11); NEUTROPHILS 72.3 % (40-80); PLATELET COUNT 265 10x3/uL (130-400); RBC 4.05 10x6/uL (4.00-5.40); RDW 14.1 % (11.5-14.5)
[2019-05-07 08:25] LABS: ANION GAP 15.8 mmol/L (8-16); CALCIUM 9.1 mg/dL (8.5-10.1); CREATININE - SERUM 1.8 mg/dL (0.6-1.3); POTASSIUM - SERUM 4.8 mmol/L (3.5-5.1)
--- NOTE | 2019-05-07 10:30 | NUR ---
PT ARRIVED BY STRETCHER. PLACED ON MONITOR. ASSESSMENT COMLETED. GERARD WISEMAN AT BEDSIDE AND ASSESSED A SMALL HEMATOMA TO LEFT GROIN. MASHED AND SOFTENED. NO NEW BLEEDING NOTED. MARKED BORDERS. WILL CONTINUE TO MONITOR.
--- NOTE | 2019-05-07 10:40 | NUR ---
NO NEW BLEEDING TO LEFT GROIN OUTSIDE OF MARKED BORDERS. VSS. WILL CONTINUE TO MONITOR.
--- NOTE | 2019-05-07 11:10 | NUR ---
LEFT GROIN DRESSING C/D/I. NO INC IN HEMATOMA TO LEFT GROIN. SOFTENING. LEFT POST TIB PULSE BY DOPPLER. ALL EXT WARM TO TOUCH. CAP REFILL < 3 SECS X 4 EXT
--- NOTE | 2019-05-07 11:40 | NUR ---
PT RESTING COMFORTABLY. TOLERATING SIPS OF WATER. VSS. LEFT GROIN DRESSING C/D/I. NO INCREASE IN HEMATOMA. SOFT TO TOUCH. STILL ABLE TO DOPPLER BILATERAL POST TIB PULSE.
--- NOTE | 2019-05-07 12:10 | NUR ---
LEFT GROIN DRESSING C/D/I. NO S/S OF NEW HEMATOMA NOTED. SOFT TO TOUCH. VSS.
--- NOTE | 2019-05-07 12:50 | NUR ---
PT MARINE ENGINEERING TEACHER LIGHT. STATES "I DON'T FEEL RIGHT". CYCLED BP 54/28. HR 65. PT PLACED IN TRENDELENBURG AND IV FLUIDS TO RIGHT ARM OPENED UP TO INFUSE. PT ALERT AND ORIENTED. O2 INC TO 2LNC DUE TO PT FEELING LIKE SHE CAN'T CATCH HER BREATH. O2 SAT STABLE AT 97%. CHECKED BILATERAL GROINS. NO HEMATOMAS NOTED. DR. ARREGUIN AT BEDSIDE AND CHECKED GROINS. ORDERS TO APPLY FEMSTOP TO LEFT GROIN. PT C/O BACK PAIN.
--- NOTE | 2019-05-07 12:55 | NUR ---
CORNELIO MOREJON AT BEDSIDE. FEMSTOP APPLIED TO LEFT GROIN AT 120mmHg. PT TOLERATING. NO BRUISING NOTED TO BACK WHEN TURNED TO PLACE FEMSTOP. IVF STILL INFUSING BY BOLUS. BP INCREASING. NOW 76/40. HR 60. PT REPORTS SHE STILL FEELS "WEIRD".
--- NOTE | 2019-05-07 13:02 | NUR ---
PT'S BP 104/53. PT STATES SHES FEELING MUCH BETTER. FEMSTOP IN PLACE. NO BLEEDING/HEMATOMA NOTED. ABLE TO DOPPLER BILATERAL POST TIB PULSES. TAUTH STATES TO KEEP FEMSTOP IN PLACE FOR 2 HOURS BEFORE ATTMEPTING TO WEAN.
--- NOTE | 2019-05-07 13:37 | NUR ---
PT REPORTS HER BACK PAIN IS IMPROVED. "DOESN'T REALLY HURT TOO BAD RIGHT NOW". RATES IT A 01/31. VSS AT THIS TIME. HR 64. BP 103/49. LEFT GROIN DRESSING C/D/I. NO S/S OF HEMATOMA NOTED. FEMSTOP IN PLACE AT 120mmHg. PT ON BEDPAN. VOIDED APPROX 100CC OF CLEAR YELLOW URINE. FERNANDA-CARE GIVEN. PT SUPINE POSITION.
--- NOTE | 2019-05-07 13:44 | OP ---
PATIENT NAME: FERNANDEZ EMMANUEL MEDICAL RECORD: [id number] :62 LOCATION:D.CAT ADMISSION DATE: SURGEON: JULES ARREGUIN MD DATE OF OPERATION: 05/07/2019 PROCEDURES: 1. Stent placement, iliac, left. 2. POLICE SERVICE TECHNICIAN iliac, left. 3. Aortofemoral runoff. 4. Abdominal aortography. INDICATION: Claudication and peripheral vascular disease. PROCEDURE IN DETAIL: After informed consent was obtained, and after a detailed description of risks, benefits as well as alternative therapies, the patient elected to proceed with angiogram and angioplasty. The left femoral area was prepped and draped in normal sterile fashion. Left femoral artery was cannulated via modified Seldinger technique with placement of 6-Cuban sheath. All catheters exchanged through this sheath. FINDINGS: Abdominal aortography was performed. The catheter was pulled down for aortofemoral runoff. Abdominal aortography reveals wide patency of the previously placed stent, mild disease elsewise. No evidence of dissection or aneurysm formation. RIGHT LEG: A. Iliac: The common internal and external iliacs have mild irregularities, but no flow-limiting stenosis. B. Femoral system: The common superficial and deep femoral have moderate irregularities, but no flow-limiting stenosis. C. Popliteal and infrapopliteal vessels are patent with these and 3-vessel runoff to the foot. LEFT LEG: A. Iliac: The common and internal iliacs are widely patent. External iliac has 80% stenosis at its takeoff. B. Femoral system: The common superficial and deep femoral have mild irregularities, but no flow-limiting stenosis. C. Popliteal and infrapopliteal vessels are widely patent with good 3-vessel runoff to the foot. POLICE SERVICE TECHNICIAN STENT OF THE LEFT ILIAC: The stent used was a 6 x 18 Palmaz stent taken to 15 atmospheres. Result was 0% residual. IMPRESSION: Successful percutaneous transluminal angioplasty stent of the left external iliac going from 80% initial stenosis to 0% residual. TRANSINT:[id number] Voice Confirmation ID: [id number] DOCUMENT ID: [id number] OPERATIVE REPORT [id number] FERNANDEZ EMMANUEL JULES ARREGUIN MD at 1344 CC: [id number] DICTATION DATE: 05/07/19 1030 WEIGHT RECORDER: 05/07/19 1111 [facility] [address] [place] [address]
--- NOTE | 2019-05-07 13:48 | NUR ---
CALLED PT'S DAUGHTER ARGELIA [phone] AND UPDATED HER ON PT'S STATUS.
--- NOTE | 2019-05-07 14:35 | NUR ---
DR. ARREGUIN UPDATED ON PT'S STATUS. WILL START WEANING FEMSTOP AT 15:00. PT'S LEFT GROIN DRESSING C/D/I. NO S/S OF HEMATOMA NOTED. VSS AT THIS TIME. WILL CONTINUE TO MONITOR.
--- NOTE | 2019-05-07 14:55 | NUR ---
PT'S BP DEC TO 86/51. IV FLUIDS INC TO 999CC/HR. PT REPORTS FEELING "FUNNY" AGAIN. PULLING OFF COVERS. FEMSTOP TO LEFT GROIN STILL AT 120mmHg. DR. ARREGUIN CALLED AND ORDERS RECEIVED TO ADMIT TO CVICU FOR FURTHER MONITORING.
--- NOTE | 2019-05-07 14:57 | NUR ---
BP BACK UP TO 101/68. HR 69.
--- NOTE | 2019-05-07 15:00 | NUR ---
John AND John VAZ
--- NOTE | 2019-05-07 15:03 | NUR ---
CALLED PT'S DAUGHTER ARGELIA AND UPDATED HER ON STATUS AND PLAN OF CARE.
--- NOTE | 2019-05-07 15:15 | NUR ---
PT'S FAMILY AT BEDSIDE. UPDATED ON PT'S STATUS. PT C/O INCREASED PAIN AT FEMSTOP SITE. RANJANA WRIGHT AT BEDSIDE TO ASSESS AND DR. KALLIE SANTOYO.
--- NOTE | 2019-05-07 15:20 | NUR ---
1 LITER NS BOLUS COMPLETED.
--- NOTE | 2019-05-07 15:30 | NUR ---
DR. ARREGUIN IS AT BEDSIDE TO ASSESS PT. WILL TAKE PT BACK TO SWORD SWALLOWER TO CHECK FOR BLEEDING. PT C/O SEVERE BURNING AND PAIN AT RIGHT GROIN SITE. FEMSTOP STILL IN PLACE, BUT SWELLING NOTED TO PUBIC AREA AND SEVERE PAIN WHEN PRESSURE APPLIED TO LEFT LOWER QUAD ABD AREA.
[2019-05-07 15:31] LABS: HEMATOCRIT 32.8 % (36.0-48.0); HEMOGLOBIN 10.7 g/dL (12-16)
--- NOTE | 2019-05-07 15:35 | NUR ---
FAMILY AT BEDSIDE. PT TAKEN OUT TO UNEMPLOYMENT INSURANCE DIRECTOR PER DR. ARREGUIN'S REQUEST. FAMILY UPDATED ON PT'S STATUS. WILL WAIT IN WAITING ROOM UNTIL PROCEDURE IS COMPLETED. REPORT GIVEN TO MICHELLE BATISTA AT NURSES' STATION.
--- NOTE | 2019-05-07 16:09 | NUR ---
DISCUSSED DISCHARGE INSTRUCTIONS WITH PT'S DAUGHTER AND GAVE HER THE PT'S DISCHARGE INSTRUCTIONS, STENT CARD, AND PLAVIX PRESCRIPTION.
--- NOTE | 2019-05-07 16:16 | NUR ---
REPORT CALLED TO MIGUEL ON MED 2. PT'S BELONGINGS GIVEN TO PT'S DAUGHTER. INCLUDING HER GLASSES AND ALL CLOTHING.
--- NOTE | 2019-05-07 16:28 | NUR ---
TRANSFER FROM HELMET COVERER BY BED. VS WNL. RIGHT GROIN STABLE WITHOUT BLEEDING OR HEMATOMA NOTED. WILL MONITOR.
[2019-05-07 16:31] VITALS: BP 123/64; Ht 152.4 cm; Wt 111.4 kg
[2019-05-07 17:57] VITALS: BP 117/68
--- NOTE | 2019-05-07 18:24 | NUR ---
BED REST UP. GROIN STABLE.
[2019-05-07 20:00] VITALS: BP 119/64
--- NOTE | 2019-05-07 20:58 | NUR ---
INITIAL ROUNDS COMPLETED AT 1915 HRS. PT DENIED ANY DISCOMFORT. ASSESSMENT COMPLETED AT 1950 HRS,. VSS. SR PER CM HR 68. BILAT GROINS CLEAN, DRY AND INTACT. BILAT FEET WARM TO TOUCH. POSTERIOR TIBIAL PULSES WEAK BUT PALPABLE. KWON DRAINING YELLOW URINE. BEDREST UP. PT ASSISTEDT O BR. HAD MODERATE BM. BACK TO BED. KWON REMOVED AT 2100 HRS PT DOES NOT MEET CRITERIA. PT CURRENTLY PLAYING ON HER PHONE. SR UP X2, CALL LIGHT WITHIN REACH.
--- NOTE | 2019-05-07 21:53 | NUR ---
PT RESTING WITH EYES CLOSED. RESP EVEN AND REGULAR. SR UP X2, CALL LIGHT WITHIN REACH.
[2019-05-08] VITALS: BP 140/65
--- NOTE | 2019-05-08 00:39 | NUR ---
NO CHANGES TO BILAT GROINS OR PEDAL PULSES. FEET WARM TO TOUCH. PT DENIES ANY DISCOMFORT. VOIDED 150CC OF YELLOW URINE POST KWON REMOVAL. SR UP X2, CALL LIGHT WITHIN REACH.
--- NOTE | 2019-05-08 02:46 | NUR ---
PT RESTING WITH EYES CLOSED. RESP EVEN AND REGULAR. SR UP X2,CALL LIGHT WITHIN REACH.
[2019-05-08 04:00] VITALS: BP 105/56
--- NOTE | 2019-05-08 04:15 | NUR ---
MONS PUBIS AND L GROIN BRUISED. AREA SOFT TO TOUCH. PT DENIES ANYDISCOMFORT. NO CHANGES TO PEDAL PULSES NOTED. SR UP X2,CALL LIGHT WITHIN REACH.
--- NOTE | 2019-05-08 06:09 | NUR ---
VSS THROUGHOUT NIGHT. SR PER CM. PT DENIED ANY DISCOMFORT. NEEDS MET;WILL CONTINUE TO MONITOR.
[2019-05-08 10:08] VITALS: BP 113/62
--- NOTE | 2019-05-08 11:21 | OP ---
PATIENT NAME: FERNANDEZ EMMANUEL MEDICAL RECORD: [id number] :62 LOCATION:D. D.2122 ADMISSION DATE: SURGEON: JULES ARREGUIN MD DATE OF OPERATION: 05/07/2019 PROCEDURE: Bilateral extremity angiography. INDICATION: Bleed post-percutaneous peripheral intervention. PROCEDURE: After informed consent was obtained and after a detailed description of risks, benefits as well as alternative therapies, the patient elected to proceed with angiogram. The right femoral area was prepped and draped in normal sterile fashion. Right femoral artery was cannulated via modified Seldinger technique with placement of 5-Tajik sheath. All catheters exchanged through this sheath. FINDINGS: The right femoral angiography was performed. There was no leak or dye extravasation or bleeding of the right femoral area. Left iliac and femoral multiple shots were made throughout the left iliac and left femoral area. The stent was widely patent. There was no extravasation of dye. No bleeding, no leaking throughout the iliac or femoral system. OVERALL IMPRESSION: Groin bleed postprocedure that was sealed with a FemoStop. No further active bleeding is occurring at this time. TRANSINT:[id number] Voice Confirmation ID: [id number] DOCUMENT ID: [id number] JULES ARREGUIN MD at 1121 CC: [id number] DICTATION DATE: 05/07/19 1605 POPPED CORN OVEN ATTENDANT: 05/07/19 1822 REG [facility] [address] [place] [address]
--- NOTE | 2019-05-08 12:35 | NUR ---
PROVIDED VERBAL AND WRITTEN DISCHARGE TEACHING TO PT, WHO VERBALIZED UNDERSTANDING REGARDING TEACHING. D/C RT FA IV WITH CATHETER TIP INTACT. PT LEFT UNIT VIA WHEELCHAIR, WITH ALL BELONGINGS, NAD NOTED.
--- NOTE | 2019-05-12 11:19 | DS ---
PATIENT:FERNANDEZ KEITA :62 MEDICAL RECORD: [id number] DISCHARGE SUMMARY ADMISSION DATE: 05/07/19 DISCHARGE DATE: 05/08/19 DISCHARGE DIAGNOSES: 1. Peripheral vascular disease. 2. Status post percutaneous transluminal angioplasty stent, left iliac. 3. Minor groin bleed. 4. Hypertension. 5. Hyperlipidemia. HOSPITAL COURSE: Mrs. Keita presents with claudication, found to have significant disease of her left lower extremity, underwent successful BASEBALL PITCHER stent of her external iliac, had a minor groin bleed that was stopped with FemoStop. She was observed overnight, had no further groin bleed. Discharged home to follow up with [facility] in 1 month. TRANSINT:[id number] Voice Confirmation ID: [id number] DOCUMENT ID: [id number] JULES ARREGUIN MD at 1119 CC: [id number] DICTATION DATE: 05/08/19 1124 BOOM WORKER: 05/09/19 0057 DEP CLI 05/08/19 [id number] [place] [address]
== END 2019-05-08 12:38 | disposition home or self-care (01) ==
LOC: D.CATH 06:59 → D.CVICU 15:40 → D.M2 16:10 → D.CATH 05-08 12:38
PROVIDERS: ATTEND Internal Medicine Interventional Cardiology
DX: I70.212 Atherosclerosis of native arteries of extremities with intermittent claudication, left leg (principal); I97.620 Postprocedural hemorrhage of a circulatory system organ or structure following other procedure; Y83.9 Surgical procedure, unspecified as the cause of abnormal reaction of the patient, or of later complication, without mention of misadventure at the time of the procedure

== ENCOUNTER → 2019-08-09 13:11 | Outpatient (CLI) | payer BC ==
[2019-05-07 16:31] VITALS: BMI 47.9
[~2019-08-09 13:11] MED LIST changes: +NORVASC5 MG PO; +PEPCID AC20 MG PO; +WELLBUTRIN SR150 MG PO; +XARELTO10 MG PO
== END | disposition home or self-care (01) ==
LOC: D.US 13:11
PROVIDERS: ATTEND Internal Medicine Cardiovascular Disease
DX: I65.23 Occlusion and stenosis of bilateral carotid arteries (principal)

== ENCOUNTER 2019-12-03 08:51 | Outpatient (CLI) | payer BC ==
[~2019-12-03] VITALS: Ht 152.4 cm; Wt 110.9 kg
--- NOTE | ~2019-12-03 | OP ---
PATIENT NAME: FERNANDEZ EMMANUEL MEDICAL RECORD: [id number] :62 LOCATION:D.CAT ADMISSION DATE: SURGEON: JULES ARREGUIN MD DATE OF OPERATION: 12/03/2019 PROCEDURES: 1. PTCA stent RCA. 2. IFR. 3. Left heart catheterization. 4. Selective coronary angiography. 5. Left ventriculogram. INDICATION: Angina and coronary artery disease. PROCEDURE IN DETAIL: After informed consent was obtained and after a detailed description of risks, benefits as well as alternative therapies, the patient elected to proceed with angiogram and angioplasty. The right radial artery was prepped, draped in normal sterile fashion. Right radial artery was cannulated via modified Seldinger technique with placement of 6-Burkinan sheath. All catheters exchanged through this sheath. FINDINGS: Left ventriculogram was performed in standard 30-degree KAUFFMAN view, reveals good cardiac wall motion, ejection fraction estimated at 55% to 60%. SELECTIVE CORONARY ANGIOGRAPHY: 1. Left main has no significant angiographic disease. 2. Left anterior descending has previously placed stents, these are widely patent with no significant restenosis. No disease elsewise throughout the LAD or its branches. 3. Left circumflex has moderate irregularities, but no flow-limiting stenosis. 4. The right coronary has previously placed stents. There is 70% stenosis between the 2 stents and IFR is abnormal. PTCA STENT OF THE RCA: The stent used is a 3.0 x 12 mm John. Result was 0% residual stenosis. OVERALL IMPRESSION: Successful percutaneous transluminal coronary angioplasty stent of the right coronary artery going from 70% initial stenosis to 0% residual. TRANSINT:[id number] Voice Confirmation ID: [id number] DOCUMENT ID: [id number] JULES ARREGUIN MD CC: [id number] DICTATION DATE: 12/03/19 1225 JANITORIAL SUPERVISOR: 12/03/19 1827 DEP CLI 12/03/19 [place] [address]
--- NOTE | ~2019-12-03 | HEMODYNAMI ---
PATIENT:FERNANDEZ EMMANUEL MEDICAL RECORD: [id number] : 62 LOCATION:[facility] ADMISSION DATE: 12/03/19 Generatedon:12/03/201912:29 Patient name: FERNANDEZ EMMANUEL Patient #: [id number] SSN: [id number] : 1960 Date of study: 12/03/2019 Page: Of Hemodynamic Procedure Report Patient Data Patient Demographics Procedure consent was obtained First Name: FERNANDEZ Gender: Female Last Name: CHOLO : 1960 Middle Initial: A Age: 59 year(s) Patient #: [id number] Race: SSN: [id number] Additional ID: [id number] Contact details [address]: [address] [place] [address] rd State: [place] City: [place] Zip code: [address] Past Medical History History of disease Date Diagnosis Comments Peripheral vascular disease Allergies Allergen Reaction Date Comments Reported Morphine 11/01/2015 Morphine 11/07/2016 Morphine 11/08/2016 Morphine 04/22/2018 Other allergy 05/22/2018 Morphine Other allergy 05/07/2019 MORPHINE, PREDNISONE Admission Admission Data Admission Date: 12/03/2019 Admission Time: 8:51 Arrival Date: 12/03/2019 Arrival Time: 0:00 Admit Source: Other Insurance Payor: Private health insurance [facility] #: [id number] Height (in.): 60 BSA: 2.03 (m2) Height (cm.): 152.4 BMI: 47.75 (kg/m2) Weight (lbs.): 244.49 Weight (kg.): 110.9 Lab Results Lab Result Date: 12/03/2019 Lab Result Time: 0:00 Biochemistry Name Units Result Min Max BUN mg/dl 22 --(----)-* 7 18 Creatinine mg/dl 1.4 --(----)*- 0.6 1.3 eGFR ml/min 41 *-(----)-- 90 120 NONAFRICAN CBC Name Units Result Min Max Hematocrit % 37.4 *-(----)-- 42 54 Hemoglobin g/dl 12.3 *-(----)-- 13.5 17.5 Procedure Procedure Types Cath Procedure Diagnostic Procedure [facility] w/Coronaries FFR/IVUS FFR Initial Sedation Charges Moderate Sedation up to 15 minutes PCI Procedure Coronary Stent Coronary Stent Initial Hemochron ACT Test Procedure Description Procedure Date Procedure Date: 12/03/2019 Procedure Start Time: 12:02 Procedure End Time: 12:26 Procedure Staff Name Function Chan Castro MD Performing Physician Melly Carpenter RT Monitor Brook Gamboa RT Scrub Fahad Webb RN Nurse Indication Abnormal ECG Progressive angina Procedure Data Cath Procedure Fluoroscopy Diagnostic fluoroscopy Total fluoroscopy Time: 8.4 time: 8.4 min min Diagnostic fluoroscopy Total fluoroscopy dose: dose: 1073 mGy 1073 mGy Contrast Material Contrast Material Type Amount (ml) Isovue 370 116 Entry Location Entry Primary Successful Side Size Upsize Upsize Entry Closure Rivera ccessful Closure Location (Fr) 1 (Fr) 2 (Fr) Remarks Device Remarks Radial Right 6 Fr Mechanical artery Short Compression Estimated blood loss: 10 ml Diagnostic catheters Device Type Used For End Catheter Placement DIAGNOSTIC [place] 110cm 5 Procedure Fr catheter ([id number]) Procedure Complications No complications Procedure Medications Medication Administration Route Dosage Oxygen etCO2 Nasal cannula 2 l/min Lidocaine 2% added to field 20 Heparin Flush Bag added to field 2 bags (1000units/500ml NS) 0.9% NaCl I.V. 100 ml/hr Radial Cocktail added to field 1 syringe (Verapamil 2mg/Nitro 400mcg/Heparin 1500units) Versed I.V. 2 mg Fentanyl I.V. 100 mcg Versed I.V. 2 mg Fentanyl I.V. 100 mcg Heparin Bolus I.V. 4000 units Plavix P.O. 75 mg Hemodynamics Rest BSA: 2.03 (m2) HGB: 12.3 (g/dl) O2 Consumption: Estimated: 197.11 (ml/min) O2 Co nsumption indexed: Estimated:97.1 (ml/min/m) Heart Rate: 75 (bpm) Snapshots Pre Cath Intra NCS Post Cath Vital Signs Time Heart Resp SPO2 etCO2 NIBP (mmHg) Rhythm Pain Sedation Rate (ipm) (%) (mmHg) Status Level (bpm) 10:47:53 73 12 96 0 139/80(132) NSR 0 (11) 10(A) , No pain 10:52:15 79 11 98 0 141/89(118) NSR 0 (11) 10(A) , No pain 10:56:39 84 12 100 33.7 155/86(125) NSR 0 (11) 10(A) , No pain 11:01:08 87 17 98 23.2 167/97(124) NSR 0 (11) 10(A) , No pain 11:05:44 73 15 96 38.1 144/77(110) NSR 0 (11) 10(A) , No pain 11:10:06 72 32 98 35.9 137/74(97) NSR 0 (11) 10(A) , No pain 11:14:30 69 17 100 40.4 148/83(136) NSR 0 (11) 10(A) , No pain 11:19:01 71 21 100 40.4 164/78(107) NSR 0 (11) 10(A) , No pain 11:23:35 67 17 99 41.1 149/78(105) NSR 0 (11) 10(A) , No pain 11:28:06 69 22 99 40.4 149/69(94) NSR 0 (11) 10(A) , No pain 11:32:24 71 16 99 40.4 137/73(110) NSR 0 (11) 10(A) , No pain 11:36:50 67 17 99 40.4 137/66(101) NSR 0 (11) 10(A) , No pain 11:41:16 66 16 99 38.9 130/68(92) NSR 0 (11) 10(A) , No pain 11:45:40 69 16 98 39.6 129/60(89) NSR 0 (11) 10(A) , No pain 11:50:05 67 15 98 38.9 122/68(83) NSR 0 (11) 10(A) , No pain 11:54:17 68 12 94 38.9 116/69(99) NSR 0 (11) 10(A) , No pain 11:58:37 76 12 97 37.4 108/65(98) NSR 0 (11) 10(A) , No pain 12:04:45 135 12 93 39.6 132/76(115) NSR 0 (11) 9(A) , No pain 12:09:06 97 11 92 44.8 134/83(117) NSR 0 (11) 9(A) , No pain 12:14:31 91 14 95 45.5 150/74(116) NSR 0 (11) 9(A) , No pain 12:20:07 101 16 96 42.6 159/76(104) NSR 0 (11) 10(A) , No pain 12:24:44 95 22 98 40.3 151/76(110) NSR 0 (11) 10(A) , No pain Medications Time Medication Route Dose Verified Delivered Reason Not es Effectiveness by by 10:57:59 Oxygen etCO2 2 l/min Chanvikash Vásquez used for Nasal Gloria Webb RN procedure cannula 10:58:09 Lidocaine 2% added 20ml Chanvikash Giles for local to vial Gloria Castro MD anesthetic field 10:58:16 Heparin Flush added 2 bags Chan Giles used for Bag to Gloria Castro MD procedure (1000units/500ml field NS) 10:58:26 0.9% NaCl I.V. 100 Chan Buffie Per physician ml/hr Gloria Webb RN 11:42:52 Radial Cocktail added 1 Chan Giles for (Verapamil to syringe Gloria Castro MD vasodilation 2mg/Nitro field 400mcg/Heparin 1500units) 12:02:26 Versed I.V. 2 mg Chan Vazquezie for sedation Gloria Webb RN 12:05:32 Fentanyl I.V. 100 mcg Chan Vásquez for sedation Gloria Webb RN 12:11:04 Versed I.V. 2 mg Chan Vazquezie for sedation Gloria Webb RN 12:11:09 Fentanyl I.V. 100 mcg Chan Vásquez for sedation Gloria Webb RN 12:17:49 Heparin Bolus I.V. 4000 Chan Vazquezie for kadie ified units Gloria Webb RN anticoagulation with dr castro 12:24:54 Plavix P.O. 75 mg Chan Vásquez for Gloria Webb RN antiplatelet therapy Procedure Log Time Note 10:16:16 Informed consent obtained and on chart 10:17:07 Procedure Status Elective Heart Cath (OP). 10:17:29 Time tracking: Regular hours (M-F 7:00 - 5:00) 10:17:33 Plan of Care:Hemodynamics will remain stable., Cardiac rhythm will remain stable., Comfort level will be maintained., Respiratory function will remain adequate., Patient/ family verbilizes understanding of procedure., Procedure tolerated without complication., Recovers from procedure without complications.. 10:23:24 Fahad Webb RN sent for patient. Start room use. 10:30:55 H&P Date Dictated: 12/02/2019 Within 30 days and on chart.. 10:30:56 Pre-procedure instructions explained to patient. 10:30:57 Pre-op teaching completed and patient verbalized understanding. 10:31:03 Lab results completed and on chart. 10:31:07 Stress Test: no; N/A ? 10:32:40 Risk of Mortality: 0.1 10:32:43 Risk of blood transfusion: 6.3 10:32:47 Risk of ROXANA: 5.4 10:33:23 Lab Result : Creatinine 1.4 mg/dl 10:33:23 Lab Result : BUN 22 mg/dl 10:33:23 Lab Result : eGFR NONAFRICAN 41 ml/min 10:33:23 Lab Result : Hematocrit 37.4 % 10:33:23 Lab Result : Hemoglobin 12.3 g/dl 10:36:07 Arrival Date: 12/03/2019 12:00:00 AM 10:36:08 Admit Source: Other 10:36:11 Insurance Payor : Private health insurance 10:36:42 Patient Height : 60 inches 10:36:46 Patient Weight : 244.49 lbs 10:37:02 Indication : Abnormal ECG 10:37:11 Indication : Progressive angina 10:37:22 Alarms reviewed by R. N. 10:37:23 Sharps counted by scrub and verified by R.N. 10:38:01 Patient received from Pre/Post Procedure Room to CCL 1 Alert and oriented. Tansferred to table in Supine position. 10:38:03 Warm blankets applied, and nisha hugger turned on for patient comfort. 10:38:04 Correct patient and procedure confirmed by team. 10:38:04 ECG and BP/O2 sat monitors applied to patient. 10:38:36 Family in waiting room. 10:38:38 Patient NPO since Midnight. 10:38:41 Is the patient allergic to Iodine/contrast media? No. 10:38:43 Was the patient premedicated? Yes 10:38:46 Patient diabetic? Yes. 10:38:48 If diabetic: On Metformin? Yes 10:38:57 If on Metformin: Last Dose? 12/03/2019 10:46:33 Vital chart was started 10:46:39 Full Disclosure recording started 10:48:36 Previous problem with sedation/anesthesia? No ? 10:48:39 Snore? Yes 10:48:41 Sleep apnea? No 10:48:43 Deviated septum? No 10:48:44 Opens mouth fully? Yes 10:48:46 Sticks out tongue? Yes 10:48:49 Airway obstruction? No ? 10:48:52 Dentures? No ? 10:48:55 Modified Billy's test Ulnar < 7 seconds 10:48:57 Patient pain scale 0/10 ?. 10:49:07 IV patent on arrival in left antecubital with 0.9% NaCl at [facility]. 10:49:13 Pre procedure: right dorsailis pedis pulse 1+ Palpable, but thready & weak; easily obliterated 10:49:18 Right Radial & Right Groin area was prepped with chlora-prep and draped in sterile fashion 10:49:24 Use device set Radial Dx or PCI 10:49:25 ACIST Syringe (54382) opened to sterile field. 10:49:26 Bag Decanter (2001S) opened to sterile field. 10:49:27 ACIST Hand Control (58030) opened to sterile field. 10:49:27 ACIST Manifold (23404) opened to sterile field. 10:49:27 Tegaderm 4 x 4 (1626W) opened to sterile field. 10:49:28 Medline Cath Pack ([id number]) opened to sterile field. 10:49:29 MBrace Wrist Support ([id number]) opened to sterile field. 10:49:30 EMERALD Guide Wire (986-187) opened to sterile field. 10:49:31 SHEATH 6FR RAIN (2423283) opened to sterile field. 10:51:04 Rhythm: sinus rhythm 10:51:08 Baseline sample Acquired. 10:57:59 Oxygen 2 l/min etCO2 Nasal cannula was administered by Buffie Webb RN; used for procedure; Verbal order read back and verified. 10:58:09 Lidocaine 2% 20ml vial added to field was administered by Chan Castro MD; for local anesthetic; Verbal order read back and verified. 10:58:16 Heparin Flush Bag (1000units/500ml NS) 2 bags added to field was administered by Chan Castro MD; used for procedure; Verbal order read back and verified. 10:58:26 0.9% NaCl 100 ml/hr I.V. was administered by Fahad Webb RN; Per physician; Verbal order read back and verified. 11:42:52 Radial Cocktail (Verapamil 2mg/Nitro 400mcg/Heparin 1500units) 1 syringe added to field was administered by Chan Castro MD; for vasodilation; Verbal order read back and verified. 12:01:09 --------ALL STOP TIME OUT------ 12:01:09 Final Timeout: patient, procedure, and site verified with staff and physician. All members of the team are in agreement. 12:01:12 Right Radial & Right Groin site verified by team. 12:01:16 Fire Safety Assessment: A--An alcohol-based skin anteseptic being used preoperatively., C--Open oxygen or nitrous oxide is being used., D--An ESU, laser, or fiber-optic light is being used. 12:01:20 Physical assessment completed. ASA score P 2 - A patient with mild systemic disease as per Chan Castro MD. 12:01:24 3b) 30-44 Moderately reduced kidney function. 12:01:27 Maximum allowable contrast dose (3.7 X eGFR X 0.75)114 ml. 12:01:33 Sedation plan: IV Moderate Sedation Medication:Versed, Fentanyl 12:01:53 Procedure started. 12:02:26 Versed 2 mg I.V. was administered by Fahad Webb RN; for sedation; Verbal order read back and verified. 12:02:49 Local anesthetic to right radial artery with Lidocaine 2% by Chan Castro MD.INITIAL ACCESS ONLY 12:03:22 A 6 Fr Short sheath was inserted into the Right Radial artery 12:03:54 A DIAGNOSTIC [place] 110cm 5 Fr catheter (979902) was advanced over the wire and used for Procedure. 12:04:07 Injector settings: Ml/sec: 5, Volume: 15, 12:04:10 LV gram done using KAUFFMAN 12:05:04 EF : 60 % 12:05:13 LCA angiography performed. 12:05:32 Fentanyl 100 mcg I.V. was administered by Fahad Webb RN; for sedation; Verbal order read back and verified. 12:06:20 Catheter exchanged over wire. 12:06:40 UNABLE TO CANNULATE WITH TIGER. 12:06:58 GUIDE 6FR XBC 3 ([id number]) opened to sterile field. 12:07:48 RCA angiography performed. 12:08:57 [place] Verrata Plus pressure wire (06182C) opened to sterile field. 12:09:29 LCA angiography performed. 12:09:44 Catheter exchanged over wire. 12:09:46 Proceeding to intervention. 12:10:21 6 Fr AR 1.0 guide catheter was inserted over the wire 12:11:04 Versed 2 mg I.V. was administered by Fahad Webb RN; for sedation; Verbal order read back and verified. 12:11:09 Fentanyl 100 mcg I.V. was administered by Fahad Webb RN; for sedation; Verbal order read back and verified. 12:11:34 FFR/IFR wire advanced. 12:12:36 Wire advanced across lesion. 12:16:15 CHOICE ES 182 wire advanced. 12:16:32 Wire removed. 12:17:09 mRCA lesion measured at .92 with IFR 12:17:16 mRCA lesion measured at .85 with IFR 12:17:49 Heparin Bolus 4000 units I.V. was administered by Fahad Webb RN; for anticoagulation; verified with dr castro Verbal order read back and verified. 12:17:53 CHOICE ES 182 WIRE WAS ADVANCED SARBJIT WIRE. 12:18:15 Pre PCI Site: [place] mRCA has 70% stenosis. 12:19:23 Place stent Inflation Number: 1 A GISELA RX 3.0 x 12 stent ([id number]) was prepped and advanced across the Mid RCA . The stent was deployed at 15 FREDERICK for 0:00 (min:sec) . 12:19:41 Stent catheter was removed intact over wire. 12:19:42 Wire removed. 12:19:42 Guide catheter removed. 12:19:57 ZEPHYR REGULAR TR BAND (194618) opened to sterile field. 12:20:14 Sheath removed intact; hemostasis achieved with Mechanical Compression to the Right Radial artery. 12:20:16 Procedure ended.(Physican Out) 12:21:17 Fluoroscopy time 08.40 minutes. 12:: Flurop Dose total: 1073 12:: Fluoroscopy dose: 1073 mGy 12:: Dose Area Product 81231 mGy/cm. 12:21:34 Contrast amount:Isovue 370 116ml. 12:21:37 Maximum allowable dose exceeded? Yes. 12::38 Sharps counted by scrub and verified by R.N. 12:21:52 Post Procedure Pulses reassessed and unchanged 12::56 Post procedure: right dorsailis pedis pulse 2+ Normal; easily identifiable; not easily obliterated. 12:21:59 Post-procedure physical assessment completed. ASA score P 2 - A patient with mild systemic disease as per Chan Castro MD. 12:22:02 Post procedure rhythm: unchanged. 12:22:05 Estimated blood loss: 10 ml 12:22:07 Post procedure instruction explained to patient.Patient verbalizes understanding. 12:22:07 Patient needs reinforcement of post procedure teaching. 12:22:14 Procedure Complication : No complications 12:22:19 [facility] Findings: MVD- PCI performed (see procedure note) 12:22:20 Operative report dictated upon procedure completion. 12:22:21 See physician's report for complete and final results. 12:23:06 Procedure type changed to Cath procedure, Diagnostic procedure, LHC, LHC w/Coronaries, FFR/IVUS, FFR Initial, Sedation Charges, Moderate Sedation up to 15 minutes, PCI procedure, Coronary Stent, Coronary Stent Initial, Hemochron ACT Test 12:23:57 ACT drawn and resulted at 136 seconds. (normal therapeutic range 180-240 seconds). 12:24:54 Plavix 75 mg P.O. was administered by Fahad Webb RN; for antiplatelet therapy; Verbal order read back and verified. 12:25:36 Procedure and supply charges have been captured, reviewed, submitted and are correct. 12:25:43 [place] band inflated with 13cc of air. 12:26:11 Report given to Pre/Post Procedure Room. 12:26:14 Patient transfered to Pre/Post Procedure Room with Stretcher. 12::16 Vital chart was stopped 12:26:20 Procedure ended. 12:26:20 Full Disclosure recording stopped 12:27:06 ACC-PCI Only Patient was given prescriptions, or instructed by Chan Castro MD to start/continue the following medications upon discharge: Plavix 12:27:08 End room use (Document Last) 12:27:49 End room use (Document Last) 12:28:08 End room use (Document Last) Intervention Summary Intervention Notes Time ActionType Lesion and Equipment Used Action# Pressure Duration Attributes 12:19:23 Place stent Mid RCA GISELA RX 3.0 x 1 15 00:00 12 stent ([id number]) Device Usage Item Name Manufacture Quantity Catalog Hospital Part Current Minimal Lot# / Number Charge Number Stock Stock Serial# Code ACIST Syringe Acist 1 90953 558274 473068 141518 20 (09096) Medical Systems Inc Bag Decanter Microtek 1 2001S 373412 13471 358499 5 (2001S) Medical Inc. ACIST Hand Acist 1 63466 881800 018813 858015 5 Control Medical (65966) Systems Inc ACIST Manifold Acist 1 53864 002393 284258 091768 5 (05159) Medical Systems Inc Tegaderm 4 x 4 3M 1 1626W 379326 833024 262947 5 (1626W) Medline Cath Medline 1 [id number] 395622 88510 003352 5 Pack ([id number]) MBrace Wrist Advanced 1 140-0250-00 873242 56590 166583 5 Support Vascular (407545038) Dynamics EMERALD Guide Cardinal 1 502-455 597068 422125 410349 5 Wire (502-455) Health SHEATH 6FR Cardinal 1 6893084 568326 7707943 611118 5 RAIN (5070401) Health DIAGNOSTIC Terumo 1 40-0523 163822 092161 604597 5 [place] 110cm 5 Fr catheter (502206) GUIDE 6FR XBC Cardinal 1 [id number] 247114 94744 202966 5 3 ([id number]) Health [place] 1 94321A 782477 465505239 211148 5 Verrata Plus pressure wire (85209G) GISELA RX 3.0 x Medtronic 1 [id number] 175584 5350355 865080 5 [id number] 12 stent ([id number]) ZEPHYR REGULAR Cardinal 1 008542 695767 0466045 734172 5 [facility] hospital (353824) Signature Audit [place] Stage Time Signature Unsigned Intra-Procedure 12/03/2019 Melly Carpenter 12:27:49 PM RT(R) Intra-Procedure 12/03/2019 Fahad Webb RN 12:28:08 PM Intra-Procedure 12/03/2019 Chan Castro 12:29:42 PM [place] [address] [place] [address]
[2019-12-03 09:19] VITALS: BP 169/72; Ht 152.4 cm; Wt 110.9 kg
[2019-12-03 09:30] LABS: BASOPHILS 0.1 % (0-2); EOSINOPHILS 3.1 % (0-7); HEMATOCRIT 37.4 % (36.0-48.0); HEMOGLOBIN 12.3 g/dL (12-16); IMMATURE GRANULOCYTES 0.8 % (0-5); LYMPHOCYTES 12.7 % (15-50); MCH 30.4 pg (26.0-34.0); MCHC 32.9 g/dL (31.0-37.0); MCV 92.3 fL (80.0-100.0); MEAN PLATELET VOLUME 9.1 fL (7.4-10.4); MONOCYTES 7.4 % (2-11); NEUTROPHILS 75.9 % (40-80); PLATELET COUNT 315 10x3/uL (130-400); RBC 4.05 10x6/uL (4.00-5.40); RDW 13.7 % (11.5-14.5); WBC 7.1 10x3/uL (4.8-10.8)
[2019-12-03 09:45] LABS: ANION GAP 15.5 mmol/L (8-16); CALCIUM 9.6 mg/dL (8.5-10.1); CARBON DIOXIDE 25.9 mmol/L (21.0-32.0); CHOL - HDL RATIO 3.5 ratio (2.3-4.1); CREATININE - SERUM 1.4 mg/dL (0.6-1.3); LDL-HDL RATIO 1.9 ratio (1.5-3.5); POTASSIUM - SERUM 4.4 mmol/L (3.5-5.1)
--- NOTE | 2019-12-03 12:35 | NUR ---
REC TO ROOM VIA STRETCHER FROM AIR SAMPLING AND MONITORING. MONITORING INITIATED. R WRIST TR BAND CDI, HAND WARM, FINGERS WIGGLE. DENIES UNUSUAL SENSATION. HR 86, NSR, BP 138/60, SAT 100% ON 2LNC, RR 13. FAMILY AT BEDSIDE. EXPL IN BED FOR 3.5 HOURS, WILL RELEASE AIR FROM TR BAND AT 3 HOURS, PLAN DC IN 4 HRS OR AT 1630. VERBALIZES UNDERSTANDING. DENIES NEEDS.
--- NOTE | 2019-12-03 13:05 | NUR ---
R WRIST CDI, FINGERS WARM AND WIGGLE. DENIES NEEDS. HR 77,NSR, BP 127/58, RR 18, SAT 100% ON 2LNC.
--- NOTE | 2019-12-03 13:15 | NUR ---
R TRBAND CDI, PULSE PALPABLE ABOVE AND BELOW BAND. FINGERS WARM. BP 135/69, HR 75 NSR. SAT 100% ON 2LNC.
[2019-12-03] MEDS ORDERED: NITROSTAT0.4 MG SL (13:36)
--- NOTE | 2019-12-03 14:04 | NUR ---
R WRIST CDI, NO S/S BLEEDING/HEMATOMA. DENIES NEEDS. HR 76 NSR, BP 119/56, SAT 99% ON 1LNC.
--- NOTE | 2019-12-03 14:38 | NUR ---
R WRIST TR BAND CDI, PULSE PALPABLE. NO S/S HEMATOMA/BLEEDING. HR NSR 76, BP 125/56, SAT 100% ON 1LNC.
--- NOTE | 2019-12-03 15:05 | NUR ---
R WRIST TR BAND CDI, PULSE PALPABLE, NO S/S BLEEDING/HEMATOMA.
--- NOTE | 2019-12-03 15:35 | NUR ---
3ML AIR REMOVED TR BAND. NO S/S BLEEDING/HEMATOMA. REQUEST TO GO TO REST ROOM. AMBULATED W STANDBY ASSIST TO REST ROOM. BACK TO ROOM, R WRIST REMAINS CDI NO S/S BLEEDING/HEMATOMA.
--- NOTE | 2019-12-03 15:45 | NUR ---
2ML AIR RELEASED FROM TR BAND. R WRIST NO S/S BLEEDING/HEMATOMA.
--- NOTE | 2019-12-03 16:05 | NUR ---
3ML AIR REMOVED TR BAND, TOTAL 8ML REMOVED. NO S/S BLEEDING/HEMATOMA R WRIST. HR NSR 74, BP 135/69, RA SAT 97%.
--- NOTE | 2019-12-03 16:15 | NUR ---
REMAINING AIR REMOVED TR BAND R WRIST, NO S/S BLEEDING/HEMATOMA. IV REMOVED, TIP INTACT. MONITORING DC. ASSISTING PT TO DRESS.
--- NOTE | 2019-12-03 16:35 | NUR ---
DC INSTRUCTIONS REVIEWED INCLUDING ADDITION OF NITRO SUBLINGUAL RX BY DR ARREGUIN. PT HAS RX AND STENT CARD. PT HAS ALL BELONGINGS. DC HOME VIA WHEELCHAIR TO PRIVATE CAR W SON.
== END 2019-12-03 16:35 ==
LOC: D.CATH 08:51
PROVIDERS: ATTEND Internal Medicine Interventional Cardiology
DX: I25.110 Atherosclerotic heart disease of native coronary artery with unstable angina pectoris (principal); I10 Essential (primary) hypertension; E78.5 Hyperlipidemia, unspecified; R06.09 Other forms of dyspnea; R94.31 Abnormal electrocardiogram [ECG] [EKG]

== ENCOUNTER → 2019-12-17 13:03 | Outpatient (CLI) | payer BC ==
[2019-12-03 09:19] VITALS: BMI 47.7
[~2019-12-17 13:03] MED LIST changes: +NITROSTAT0.4 MG SL
== END | disposition home or self-care (01) ==
LOC: D.US 13:03
PROVIDERS: ATTEND Internal Medicine Interventional Cardiology
DX: R42 Dizziness and giddiness (principal); I65.23 Occlusion and stenosis of bilateral carotid arteries

== ENCOUNTER → 2020-05-09 22:08 | Outpatient (CLI) | payer BC ==
[2019-12-03 09:19] VITALS: BMI 47.7
[2020-05-09 22:34] LABS: CHOL - HDL RATIO 3.7 ratio (2.3-4.1); LDL-HDL RATIO 2.1 ratio (1.5-3.5)
== END | disposition home or self-care (01) ==
LOC: D.LABREF 22:08
PROVIDERS: ATTEND Nurse Practitioner Adult Health
DX: E78.5 Hyperlipidemia, unspecified (principal)

== ENCOUNTER → 2020-05-29 10:24 | Outpatient (CLI) | payer BC ==
[2019-12-03 09:19] VITALS: BMI 47.7
== END | disposition home or self-care (01) ==
LOC: D.HCCARDIO 10:24
PROVIDERS: ATTEND Internal Medicine Cardiovascular Disease
DX: I25.10 Atherosclerotic heart disease of native coronary artery without angina pectoris (principal)

== ENCOUNTER → 2020-07-03 06:52 | Outpatient (CLI) | payer BC ==
[2019-12-03 09:19] VITALS: BMI 47.7
== END | disposition home or self-care (01) ==
LOC: D.CT 06:52
PROVIDERS: ATTEND Internal Medicine Cardiovascular Disease
DX: I70.213 Atherosclerosis of native arteries of extremities with intermittent claudication, bilateral legs (principal)

== ENCOUNTER → 2020-08-01 12:59 | Outpatient (CLI) | payer BC ==
[2019-12-03 09:19] VITALS: BMI 47.7
== END | disposition home or self-care (01) ==
LOC: D.US 08:30
PROVIDERS: ATTEND Internal Medicine Cardiovascular Disease
DX: I65.29 Occlusion and stenosis of unspecified carotid artery (principal)

== ENCOUNTER → 2020-08-08 06:51 | Day surgery (SDC) | payer BC ==
[~2020-08-08] VITALS: Ht 152.4 cm; Wt 110.6 kg
--- NOTE | ~2020-08-08 | HEMODYNAMI ---
PATIENT:FERNANDEZ EMMANUEL MEDICAL RECORD: [id number] : 62 LOCATION:D.CAT ADMISSION DATE: 08/08/20 Generatedon:08/08/20209:51 Patient name: FERNANDEZ EMMANUEL Patient #: [id number] SSN: [id number] : 1960 Date of study: 08/08/2020 Page: Of Hemodynamic Procedure Report Patient Data Patient Demographics Procedure consent was obtained First Name: FERNANDEZ Gender: Female Last Name: CHOLO : 1960 Middle Initial: A Age: 60 year(s) Patient #: [id number] Race: SSN: [id number] Additional ID: [id number] Contact details [address]: [address] [place] [address] rd State: [place] City: [place] Zip code: [address] Past Medical History History of disease Date Diagnosis Comments Peripheral vascular disease Allergies Allergen Reaction Date Comments Reported Morphine 11/01/2015 Morphine 11/07/2016 Morphine 11/08/2016 Morphine 04/22/2018 Other allergy 05/22/2018 Morphine Other allergy 05/07/2019 MORPHINE, PREDNISONE Other allergy 08/08/2020 MORPHINE/PREDNISONE Admission Admission Data Admission Date: 08/08/2020 Admission Time: 6:51 Arrival Date: 08/08/2020 Arrival Time: 0:00 Lab Results Lab Result Date: 08/08/2020 Lab Result Time: 0:00 Biochemistry Name Units Result Min Max BUN mg/dl 22 --(----)-* 7 18 Creatinine mg/dl 1.7 --(----)-* 0.6 1.3 eGFR ml/min 33 *-(----)-- 90 120 NONAFRICAN CBC Name Units Result Min Max Hematocrit % 39.4 -*(----)-- 42 54 Hemoglobin g/dl 12.4 *-(----)-- 13.5 17.5 Procedure Procedure Types Cath Procedure Diagnostic Procedure Sedation Charges Moderate Sedation up to 15 minutes Peripheral Cath Diagnostic Procedure Ese Teacher Peripheral Procedures AFRO (Diagnostic) Procedure Description Procedure Date Procedure Date: 08/08/2020 Procedure Start Time: 9:31 Procedure End Time: 9:50 Procedure Staff Name Function Andrew Henderson MD Performing Physician Hyacinth Rodriguez RT Monitor Magdaleno Calderón RT Scrub Fahad Webb RN Nurse Procedure Data Cath Procedure Fluoroscopy Diagnostic fluoroscopy Total fluoroscopy Time: 2.8 time: 2.8 min min Diagnostic fluoroscopy Total fluoroscopy dose: 484 dose: 484 mGy mGy Contrast Material Contrast Material Type Amount (ml) Isovue 300 82 Entry Location Entry Primary Successful Side Size Upsize Upsize Entry Closure Succes sful Closure Location (Fr) 1 (Fr) 2 (Fr) Remarks Device Remarks Femoral Right 5 Fr Exoseal artery Estimated blood loss: 5 ml Diagnostic catheters Device Type Used For End Catheter Placement DIAGNOSTIC UF 5Fr Procedure catheter ([id number]) Procedure Complications No complications Procedure Medications Medication Administration Route Dosage Oxygen etCO2 Nasal cannula 2 l/min Lidocaine 2% added to field 20 Heparin Flush Bag added to field 2 bags (1000units/500ml NS) 0.9% NaCl I.V. 100 ml/hr Versed I.V. 1 mg Fentanyl I.V. 50 mcg Versed I.V. 1 mg Fentanyl I.V. 50 mcg Versed I.V. 1 mg Fentanyl I.V. 50 mcg Hemodynamics Rest HGB: 12.4 (g/dl) Heart Rate: 58 (bpm) Snapshots Pre Cath Intra NCS Post Cath Vital Signs Time Heart Resp SPO2 etCO2 NIBP (mmHg) Rhythm Pain Sedation Rate (ipm) (%) (mmHg) Status Level (bpm) 8:58:07 60 13 100 0 145/57(115) NSR 0 (11) 10(A) , No pain 9:03:26 59 24 100 33.8 149/69(122) NSR 0 (11) 10(A) , No pain 9:07:55 57 34 100 36.1 140/65(108) NSR 0 (11) 10(A) , No pain 9:12:15 57 14 100 43.6 121/56(87) NSR 0 (11) 10(A) , No pain 9:16:37 63 18 100 41.4 136/59(113) NSR 0 (11) 10(A) , No pain 9:21:07 60 19 100 39.1 124/53(75) NSR 0 (11) 10(A) , No pain 9:25:36 59 11 99 45.1 107/47(103) NSR 0 (11) 10(A) , No pain 9:30:51 59 11 100 38.3 117/46(90) NSR 0 (11) 9(A) , No pain 9:36:02 66 10 99 46.6 111/55(86) NSR 0 (11) 9(A) , No pain 9:40:23 67 11 99 48.1 117/56(91) NSR 0 (11) 9(A) , No pain 9:44:45 66 13 99 45.9 120/54(74) NSR 0 (11) 10(A) , No pain 9:49:03 68 10 99 29.3 118/68(85) NSR 0 (11) 10(A) , No pain Medications Time Medication Route Dose Verified Delivered Reason Notes Effe ctiveness by by 8:56:58 Oxygen etCO2 2 Andrew Buffie used for Nasal l/min Santiago Webb RN procedure cannula 8:57:05 Lidocaine 2% added 20ml Andrew Andrew for local to vial Santiago Henderson MD anesthetic field 8:57:12 Heparin Flush added 2 Andrew Andrew used for Bag to bags Santiago Henderson MD procedure (1000units/500ml field NS) 8:57:22 0.9% NaCl I.V. 100 Andrew Buffie Per ml/hr Santiago Webb RN physician 9:21:50 Versed I.V. 1 mg Andrew Buffie for Santiago Webb RN sedation 9:21:56 Fentanyl I.V. 50 Andrew Buffie for mcg Santiago Webb RN sedation 9:29:41 Versed I.V. 1 mg Andrew Buffie for Santiago Webb RN sedation 9:29:45 Fentanyl I.V. 50 Andrew Buffie for mcg Santiago Webb RN sedation 9:34:15 Versed I.V. 1 mg Andrew Buffie for Santiago Webb RN sedation 9:34:18 Fentanyl I.V. 50 Andrew Buffie for mcg Santiago Webb RN sedation Procedure Log Time Note 8:45:10 Fahad Webb RN sent for patient. Start room use. 8:46:35 Informed consent obtained and on chart 8:49:01 Arrival Date: 08/08/2020 12:00:00 AM 8:50:06 Procedure Status Elective Heart Cath (OP), Peripheral. 8:50:12 Time tracking: Regular hours (M-F 7:00 - 5:00) 8:50:20 Plan of Care:Hemodynamics will remain stable., Cardiac rhythm will remain stable., Comfort level will be maintained., Respiratory function will remain adequate., Patient/ family verbilizes understanding of procedure., Procedure tolerated without complication., Recovers from procedure without complications.. 8:51:34 Patient received from Pre/Post Procedure Room to CCL 1 Alert and oriented. Tansferred to table in Supine position. 8:52:16 Patient allergic to Other allergyMORPHINE/PREDNISONE 8:52:25 H&P Date Dictated: 08/08/2020 H&P Addendum completed by physician on day of procedure. (MUST COMPLETE FOR ALL OUTPATIENTS), New H&P dictated by physician.. 8:52:29 Warm blankets applied, and nisha hugger turned on for patient comfort. 8:52:30 Correct patient and procedure confirmed by team. 8:52:30 ECG and BP/O2 sat monitors applied to patient. 8:52:34 Pre-procedure instructions explained to patient. 8:52:35 Pre-op teaching completed and patient verbalized understanding. 8:52:38 Family in patients room. 8:52:45 Is the patient allergic to Iodine/contrast media? No. 8:52:49 Was the patient premedicated? Yes 8:52:52 Is patient on blood thinner?Yes 8:52:58 ACC The patient was administered the following blood thiners within the last 24 hours: ACCPlavix 8:53:01 Patient diabetic? Yes. 8:53:05 If on Metformin: Last Dose? 08/06/2020 8:56:47 Vital chart was started 8:56:58 Oxygen 2 l/min etCO2 Nasal cannula was administered by Fahad Webb RN; used for procedure; Verbal order read back and verified. 8:57:05 Lidocaine 2% 20ml vial added to field was administered by Andrew Henderson MD; for local anesthetic; Verbal order read back and verified. 8:57:12 Heparin Flush Bag (1000units/500ml NS) 2 bags added to field was administered by Andrew Henderson MD; used for procedure; Verbal order read back and verified. 8:57:22 0.9% NaCl 100 ml/hr I.V. was administered by Fahad Webb RN; Per physician; Verbal order read back and verified. 9:03:49 Baseline sample Acquired. 9:03:54 Rhythm: sinus rhythm 9:03:56 Full Disclosure recording started 9:03:57 9:04:05 ----Pre-sedation anethsthesia assessment.---- 9:04:09 Previous problem with sedation/anesthesia? No ? 9:04:12 Snore? Yes 9:04:14 Sleep apnea? No 9:04:17 Deviated septum? Unknown 9:04:20 Opens mouth fully? Yes 9:04:22 Sticks out tongue? Yes 9:04:27 Airway obstruction? No ? 9:04:33 Dentures? No ? 9:04:41 Pre procedure: right dorsailis pedis pulse Doppler 9:04:46 Pre procedure: left dorsailis pedis pulse Doppler 9:04:58 IV patent on arrival in left forearm with 0.9% NaCl at [facility]. 9:05:39 Lab Result : BUN 22 mg/dl 9:05:39 Lab Result : Creatinine 1.7 mg/dl 9:05:39 Lab Result : eGFR NONAFRICAN 33 ml/min 9:05:39 Lab Result : Hematocrit 39.4 % 9:05:39 Lab Result : Hemoglobin 12.4 g/dl 9:05:47 Lab results completed and on chart. 9:05:54 Stress Test: no; N/A ? 9:06:04 Bilateral groins area was prepped with chlora-prep and draped in sterile fashion 9:06:08 Alarms reviewed by Dawit Dickerson 9:06:09 Sharps counted by scrub and verified by R.NLeona 9:06:16 Use device set Femoral Dx 9:06:18 ACIST Syringe (63282) opened to sterile field. 9:06:19 Bag Decanter (2001S) opened to sterile field. 9:06:21 ACIST Hand Control (69542) opened to sterile field. 9:06:21 ACIST Manifold (23245) opened to sterile field. 9:06:23 Tegaderm 4 x 4 (1626W) opened to sterile field. 9:06:26 SHEATH 5FR Warren ([id number]) opened to sterile field. 9:06:28 EMERALD Guide Wire (058-148) opened to sterile field. 9:09:01 Patient NPO since Midnight. 9:19:50 Physician arrived 9:19:51 --------ALL STOP TIME OUT------ 9:19:52 Final Timeout: patient, procedure, and site verified with staff and physician. All members of the team are in agreement. 9:19:55 Bilateral groins site verified by team. 9:20:04 Fire Safety Assessment: A--An alcohol-based skin anteseptic being used preoperatively., C--Open oxygen or nitrous oxide is being used., D--An ESU, laser, or fiber-optic light is being used. 9:20:09 Physical assessment completed. ASA score P 2 - A patient with mild systemic disease as per Andrew Henderson MD. 9:20:16 3b) 30-44 Moderately reduced kidney function. 9:20:22 Maximum allowable contrast dose (3.7 X eGFR X 0.75)91 ml. 9:20:30 Sedation plan: IV Moderate Sedation Medication:Versed, Fentanyl 9:21:50 Versed 1 mg I.V. was administered by Fahad Webb RN; for sedation; Verbal order read back and verified. 9:21:56 Fentanyl 50 mcg I.V. was administered by Fahad Webb RN; for sedation; Verbal order read back and verified. 9:29:41 Versed 1 mg I.V. was administered by Fahad Webb RN; for sedation; Verbal order read back and verified. 9:29:45 Fentanyl 50 mcg I.V. was administered by Fahad Webb RN; for sedation; Verbal order read back and verified. 9:29:59 Zero performed for pressure channel P1 9:30:05 Procedure started. 9:31:33 Local anesthetic to right femoral artery with Lidocaine 2% by Andrew Henderson MD.INITIAL ACCESS ONLY 9:34:09 A 5 Fr sheath was inserted into the Right Femoral artery 9:34:15 Versed 1 mg I.V. was administered by Fahad Webb RN; for sedation; Verbal order read back and verified. 9:34:18 Fentanyl 50 mcg I.V. was administered by Fahad Webb RN; for sedation; Verbal order read back and verified. 9:34:40 A DIAGNOSTIC UF 5Fr catheter ([id number]) was advanced over the wire and used for Procedure. 9:35:56 Abdominal Aortagram was performed 10@20. 9:36:49 Abdominal Aortagram was performed 10@20. 9:37:35 Left leg runoff performed@5 FOR 10. 9:38:46 RT ILIAC angiography performed@5 FOR 10. 9:38:55 Right leg runoff performed@5 FOR 10. 9:43:17 THE UF FLUSH IS POSITIONED ABOVE THE RENALS FOR AN ABDOMINAL INJECTION@5 FOR 10 9:44:18 Catheter removed. 9:44:22 EXOSEAL 5Fr (EX500) opened to sterile field. 9:44:44 Sheath removed intact; hemostasis achieved with Exoseal to the Right Femoral artery. 9:45:04 Procedure ended.(Physican Out) 9:45:19 Contrast amount:Isovue 300 82ml. 9:45:29 Fluoroscopy time 02.80 minutes. 9:45:37 Flurop Dose total: 484 9:45:37 Fluoroscopy dose: 484 mGy 9:45:47 Dose Area Product 86647 mGy/cm. 9:45:52 Maximum allowable dose exceeded? No. 9:45:53 Sharps counted by scrub and verified by R.N. 9:46:01 Post-op/insertion site Right Femoral artery dressed using a 4 x 4 and Tegaderm. 9:46:07 Post-procedure physical assessment completed. ASA score P 2 - A patient with mild systemic disease as per Andrew Henderson MD. 9:46:11 Post procedure rhythm: unchanged. 9:46:14 Estimated blood loss: 5 ml 9:46:15 Post procedure instruction explained to patient.Patient verbalizes understanding. 9:46:16 Patient needs reinforcement of post procedure teaching. 9:46:45 Procedure type changed to Cath procedure, Diagnostic procedure, Sedation Charges, Moderate Sedation up to 15 minutes, Peripheral Cath Diagnostic Procedure, Ese Teacher Peripheral Procedures, AFRO (Diagnostic) 9:47:22 Procedure and supply charges have been captured, reviewed, submitted and are correct. 9:49:52 Procedure Complication : No complications 9:49:55 Vital chart was stopped 9:50:00 AFRO Findings: PVD: mild to moderate (<70%) 9:50:05 See physician's report for complete and final results. 9:50:08 Report given to Pre/Post Procedure Room. 9:50:12 Patient transfered to Pre/Post Procedure Room with Stretcher. 9:50:15 Procedure ended. 9:50:15 Full Disclosure recording stopped 9:50:17 End room use (Document Last) Device Usage Item Name Manufacture Quantity Catalog Hospital Part Current Minimal Lot # / Number Charge Number Stock Stock Serial# Code ACIST Acist 1 54469 526506 [id number] 20 Syringe Medical (25344) Systems Inc Bag Microtek 1 2001S 196266 50654 542134 5 Decanter Medical Inc. () ACIST Hand Acist 1 55405 187139 [id number] [id number] 5 Control Medical (01874) Systems Inc ACIST Acist 1 25158 513339 534296 742417 5 Manifold Medical (87973) Systems Inc Tegaderm 4 3M 1 1626W 199864 202912 741449 5 x 4 (1626W) SHEATH 5FR Terumo 1 [id number] 214991 625725 673024 5 Warren (YOD043) EMERALD Cardinal 1 502-455 220062 333241 938901 5 Guide Wire Health (502-455) DIAGNOSTIC Cardinal 1 [id number] 292222 890928 727741 10 UF 5Fr Health catheter ([id number]) EXOSEAL Cardinal 1 EX500 528728 854888 500086 10 5Fr Health (EX500) Signature Audit [place] Stage Time Signature Unsigned Intra-Procedure 08/08/2020 Hyacinth 9:50:35 AM Michael RT(R) (CV) Intra-Procedure 08/08/2020 Fahad Webb RN 9:51:06 AM Intra-Procedure 08/08/2020 Andrew Henderson MD 9:51:43 AM [place] [id number] [place] [id number]
[~2020-08-08 06:51] MED LIST changes: +CRESTOR40 MG PO; +NEXIUM20 MG PO
[2020-08-08 07:59] VITALS: BP 102/66; Ht 152.4 cm; Wt 110.6 kg
[2020-08-08 08:00] LABS: BASOPHILS 0.1 % (0-2); HEMATOCRIT 39.4 % (36.0-48.0); HEMOGLOBIN 12.4 g/dL (12-16); IMMATURE GRANULOCYTES 0.6 % (0-5); LYMPHOCYTES 14.6 % (15-50); MCH 29.5 pg (26.0-34.0); MCHC 31.5 g/dL (31.0-37.0); MCV 93.6 fL (80.0-100.0); MEAN PLATELET VOLUME 8.8 fL (7.4-10.4); NEUTROPHILS 73.7 % (40-80); PLATELET COUNT 302 10x3/uL (130-400); RBC 4.21 10x6/uL (4.00-5.40); RDW 14.6 % (11.5-14.5); WBC 6.9 10x3/uL (4.8-10.8)
[2020-08-08 08:12] LABS: ANION GAP 11.6 mmol/L (8-16); CALCIUM 9.4 mg/dL (8.5-10.1); CARBON DIOXIDE 26.8 mmol/L (21.0-32.0); CHOL - HDL RATIO 3.1 ratio (2.3-4.1); CREATININE - SERUM 1.7 mg/dL (0.6-1.3); LDL-HDL RATIO 1.7 ratio (1.5-3.5); POTASSIUM - SERUM 4.4 mmol/L (3.5-5.1)
--- NOTE | 2020-08-08 09:59 | NUR ---
PT ARRIVED BY STRETCHER. PLACED ON MONITORS. ASSESSMENT COMPLETED. VSS AT THIS TIME. CALL LIGHT WITHIN REACH. FAMILY AT BEDSIDE. DR. YANES ROUNDED AND SPOKE WITH PT AND PT'S . CALL LIGHT WITHIN REACH.
--- NOTE | 2020-08-08 10:15 | NUR ---
RIGHT GROIN DRESSING C/D/I. NO S/S OF HEMATOMA NOTED. CALL LIGHT WITHIN REACH. VSS AT THIS TIME. CALL LIGHT WITHIN REACH.
--- NOTE | 2020-08-08 10:45 | NUR ---
RIGHT GROIN DRESSING C/D/I. NO S/S OF HEMATOMA NOTED. CALL LIGHT WITHIN REACH. VSS AT THIS TIME.
--- NOTE | 2020-08-08 11:30 | NUR ---
RIGHT GROIN DRESSING C/D/I. NO S/S OF HEMATOMA NOTED. CALL LIGHT WITIHIN REACH. VSS AT THIS TIME. HEAD OF BED INC TO 30 DEGREES. TOLERATED WELL. SET UP WITH SANDWICH TRAY AND DRINK. DENIES NAUSEA/PAIN.
--- NOTE | 2020-08-08 12:20 | NUR ---
RIGHT GROIN DRESSING C/D/I. NO S/S OF HEMATOMA NOTED. PIV D/C'D WITH CATH TIP INTACT. TOLERATED WELL. PT INSTRUCTED TO GET UP AND DRESSED AT THIS TIME. FAMILY AT BEDSIDE TO ASSIST.
--- NOTE | 2020-08-08 12:24 | NUR ---
DISCUSSED DISCHARGE INSTRUCTIONS WITH PT AND PT'S FAMILY. THEY VOICED UNDERSTANDING. RIGHT GROIN DRESSING C/D/I. NO S/S OF HEMATOMA NOTED. PT AMBULATED TO RESTROOM. VOIDED WITHOUT DIFFICULTY. STEADY GAIT NOTED.
--- NOTE | 2020-08-08 12:30 | NUR ---
PT TAKEN OUT TO VEHICLE BY WHEELCHAIR. NO S/S OF DISTRESS NOTED. ALL BELONINGS AND PAPERWORK IN HAND.
== END | disposition home or self-care (01) ==
LOC: D.CATH 06:51
PROVIDERS: ATTEND Internal Medicine Cardiovascular Disease
DX: I25.119 Atherosclerotic heart disease of native coronary artery with unspecified angina pectoris (principal); R93.1 Abnormal findings on diagnostic imaging of heart and coronary circulation; I10 Essential (primary) hypertension; E66.01 Morbid (severe) obesity due to excess calories; E78.5 Hyperlipidemia, unspecified; I73.9 Peripheral vascular disease, unspecified; R06.00 Dyspnea, unspecified; R06.02 Shortness of breath; I65.29 Occlusion and stenosis of unspecified carotid artery